=== PATIENT | male | born 1965 | race Asian ===

== ENCOUNTER 2016-12-30 22:58 | Inpatient (IN) | payer SELFPAY ==
--- NOTE | 2016-12-30 23:52 | ED Physician Chart ---
ED Chief Complaint/HPI - Patient Information Date Seen:: 12/30/16 Time Seen:: 23:10 Chief Complaint:: Right Inguinal Pain History of Present Illness:: onset x one day of right inguinal pain and protrusion of RIH; no trauma, H/As, neck pain, C/P, SOB, Abd/flank pain, A/N/V/D/C, fever, chills, or urinary s/s Allergies:: Allergies Allergy/AdvReac Type Severity Reaction Status Date / Time No Known Allergies Allergy Verified 12/30/16 23:41 Vitals:: Vital Signs - 8 hr 12/30/16 23:10 Temp 98.4 F HR 86 RR 20 BP 144/94 O2 Sat % 99 Historian:: Patient Review:: Nurse's Note Reviewed ED Review of Systems - Review of Systems General/Constitutional: No fever, No chills, No weight loss, No weakness, No diaphoresis, No edema, No loss of appetite Skin: No skin lesions, No rash, No bruising Head: No headache, No light-headedness Eyes: No loss of vision, No pain, No diplopia ENT: No earache, No nasal drainage, No sore throat, No tinnitus Neck: No neck pain, No swelling, No thyromegaly, No stiffness, No mass noted Cardio Vascular: No chest pain, No palpitations, No PND, No orthopnea, No edema Pulmonary: No SOB, No cough, No sputum, No wheezing GI: No nausea, No vomiting, No diarrhea, No pain, No melena, No hematochezia, No constipation, No hematemesis G/U: No dysuria, No frequency, No hematuria, No nacturia Musculoskeletal: Bone or joint pain, Back pain, Muscle pain Endocrine: No polyuria, No polydipsia Psychiatric: No prior psych history, No depression, No anxiety, No suicidal ideation Hematopoietic: No bruising, No lymphadenopathy Allergic/Immuno: No urticaria, No angioedema Neurological: No syncope, No focal symptoms, No weakness, No paresthesia, No headache, No seizure, No dizziness, No confusion, No vertigo ED Past Medical History - Past Medical History Obtainable: Yes Past Medical History: Other (DDD; Hernia) Family History: HTN Social History: Non Smoker, No Alcohol, No Drug Use, Single Surgical History: Hernia Psychiatricy History: None Medication: Reviewed ED Physical Exam - Physical Examination General/Constitutional: Awake, Well-developed, well-nourished, Alert, No distress, GCS 15, Non-toxic appearing, Ambulatory Head: Atraumatic Eyes: Lids, conjuctiva normal, PERRL, EOMI Skin: Nl inspection, No rash, No skin lesions, No ecchymosis, Well hydrated, No lymphadenopathy ENMT: External ears, nose nl, Nasal exam nl, Lips, teeth, gums nl Neck: Nontender, Full ROM w/o pain, No JVD, No nuchal rigidity, No bruit, No mass, No stridor Respiratory: Nl effort/Exclusion, Clear to Auscultation, No Wheeze/Rhonchi/Rales Cardio Vascular: RRR, No murmur, gallop, rubs, NL S1 S2 GI: No tenderness/rebounding/guarding, No organomegaly, No hernia, Normal BS's, Nondistended, No mass/bruits, No McBurney tenderness : No CVA tenderness Other comments:: + Right Inguinal Hernia Extremities: No tenderness or effusion, Full ROM, normal strength in all extremities, No edema, Normal digits & nails Neuro/Psych: Alert/oriented, DTR's symmetric, Normal sensory exam, Normal motor strength, Judgement/insight normal, Mood normal, Normal gait, No focal deficits Misc: Normal back, No paraspinal tenderness ED Labs/Radiology/EKG Results - Lab Results Comments:: H/H: Low; otherwise unremarkable - Radiology Results Comments:: Non-obstructing RIH - EKG Interpretations EKG Time:: 23:56 Rate & Rhythm: 84; NSR Comments:: T-Wave Inversions; nonspecific st-t changes ED Septic Shock - . Is Septic Shock (SBP<90, OR Lactate>4 mmol\L) present?: No - <6hrs of presentation: Vital Signs: Vital Signs - 8 hr 12/30/ 23:10 Temp 98.4 F HR 86 RR 20 BP 144/94 O2 Sat % 99 ED Reassessment (Disposition) - Reassessment Reassessment Condition:: Improved - Diagnosis Diagnosis:: Dx: Right Inguinal Hernia; Intractable Pain; Anemia; Abdominal Pain; Back Pain - Aftercare/Follow up Instructions Aftercare/Follow-Up Instructions:: Counseled pt regarding lab results/diagnosis & need follow up, Counseled pt & family regarding lab results/diagnosis & need follow up - Patient Disposition Discharge/Transfer:: Acute Care w/in this hosp Accepting Physician:: Dr. Rouse Time Called:: 229 Time Responded:: 02:30 Admitted to:: Med/Surg Spoke to:: Dr. Rouse Admitting Medical Physician:: Dr. Rouse Condition at Disposition:: Stable, Improved ED Discharge Plan - Patient Disposition Admit/Discharge/Transfer: Acute Care w/in this hosp
[2016-12-30] MEDS ORDERED: Morphine Sulfate 2 mg/mL 1mL Syr IVP ONE (23:53)
[2016-12-30] MEDS ORDERED: Sodium Chloride 0.9% 1,000 ML IV ONE (23:53)
[2016-12-31 00:21] LABS: % BASOPHILS 0.8 % (0.0-2.0); % EOSINOPHILS 2.7 % (0.0-5.0); % LYMPHOCYTES 31.4 % (20.0-50.0); % MONOCYTES 8.8 % (2.0-10.0); % NEUTROPHILS 56.3 % (40.0-80.0); HEMATOCRIT 34.9 % (41.0-60); HEMOGLOBIN 11.6 gm/dL (12-16); MEAN CELL VOLUME 87.5 fl (80-99); MEAN CORPUSCULAR HEMOGLOBIN 29.2 pg (26.0-30.0); MEAN CORPUSCULAR HGB CONC 33.3 pg (28.0-36.0); MEAN PLATELET VOLUME 8.5 fl; NEUTROPHILE ABSOLUTE 4.4 Th/cmm (1.8-8.0); PLATELET COUNT 255 Th/cmm (150-400); RED BLOOD COUNT 3.99 Mil/cmm (4.30-5.70); RED CELL DISTRIBUTION WIDTH 13.5 % (11.5-20.0); WHITE BLOOD COUNT 7.8 Th/cmm (4.8-10.8)
[2016-12-31] MEDS ORDERED: Morphine Sulfate 2 mg/mL 1mL Syr ONE (00:39)
[2016-12-31 00:48] LABS: INR 0.9 (0.5-1.4); PROTHROMBIN TIME (TEST) 9.3 SECONDS (9.5-11.5)
[2016-12-31 00:52] LABS: ALB/GLOB RATIO 1.4 (1.0-1.8); ALKALINE PHOSPHATASE 69 U/L (34-104); AMYLASE SERUM 31 U/L (29-103); ANION GAP 7.3 (7.0-16.0); BILIRUBIN,TOTAL 0.2 mg/dL (0.3-1.0); BUN - UREA NITROGEN 20 mg/dL (7-25); CALCIUM SERUM 9.2 mg/dL (8.6-10.3); CARBON DIOXIDE 28.4 mEq/L (21.0-31.0); CHLORIDE 105 mEq/L (98-107); CHOLESTEROL 135 mg/dL (<200); CREATININE - SERUM 0.8 mg/dL (0.7-1.3); GLUCOSE 109 mg/dL (70-105); POTASSIUM SERUM 3.7 mEq/L (3.5-5.1); SGOT 16 U/L (13-39); SGPT/ALT 17 U/L (7-52); SODIUM SERUM 137 mEq/L (136-145); TRIGLYCERIDES 61 mg/dL (<150)
[2016-12-31 01:11] LABS: CREATINE KINASE MB 15.5 ng/mL (0.6-6.3)
[2016-12-31] MEDS ORDERED: Ipratropium Neb 0.5 mg/2.5 mL UD IH PRN (07:58)
[2016-12-31] MEDS ORDERED: Albuterol Nebulizer 2.5mg/3mL HHN PRN (07:58)
[2016-12-31 07:59] VITALS: BP 153/102
--- NOTE | 2016-12-31 08:49 | General Progress Note ---
Subjective - Review of Systems Service Date: 12/31/16 Events since last encounter: consult dictated labs normal had repair of this hernia 1 year ago right scrotal hernia, tender, incarcerated, not strangulated will have case management get involved Objective - Results Result Diagrams: 12/31/16 00:04 12/31/16 00:04 Recent Labs: Laboratory Last Values WBC 7.8 Th/cmm (4.8-10.8) 12/31/16 00:04 RBC 3.99 Mil/cmm (4.30-5.70) L 12/31/16 00:04 Hgb 11.6 gm/dL (12-16) L 12/31/16 00:04 Hct 34.9 % (41.0-60) L 12/31/16 00:04 MCV 87.5 fl (80-99) 12/31/16 00:04 MCH 29.2 pg (26.0-30.0) 12/31/16 00:04 MCHC Differential 33.3 pg (28.0-36.0) 12/31/16 00:04 RDW 13.5 % (11.5-20.0) 12/31/16 00:04 Plt Count 255 Th/cmm (150-400) 12/31/16 00:04 MPV 8.5 fl 12/31/16 00:04 Neutrophils % 56.3 % (40.0-80.0) 12/31/16 00:04 Lymphocytes % 31.4 % (20.0-50.0) 12/31/16 00:04 Monocytes % 8.8 % (2.0-10.0) 12/31/16 00:04 Eosinophils % 2.7 % (0.0-5.0) 12/31/16 00:04 Basophils % 0.8 % (0.0-2.0) 12/31/16 00:04 PT 9.3 SECONDS (9.5-11.5) L 12/31/16 00:04 INR 0.90 (0.5-1.4) 12/31/16 00:04 Sodium 137 mEq/L (136-145) 12/31/16 00:04 Potassium 3.7 mEq/L (3.5-5.1) 12/31/16 00:04 Chloride 105 mEq/L (98-107) 12/31/16 00:04 Carbon Dioxide 28.4 mEq/L (21.0-31.0) 12/31/16 00:04 Anion Gap 7.3 (7.0-16.0) 12/31/16 00:04 BUN 20 mg/dL (7-25) 12/31/16 00:04 Creatinine 0.8 mg/dL (0.7-1.3) 12/31/16 00:04 Est GFR ( Amer) > 60.0 ml/min (>90) 12/31/16 00:04 Est GFR (Non-Af Amer) > 60.0 ml/min 12/31/16 00:04 BUN/Creatinine Ratio 25.0 12/31/16 00:04 Glucose 109 mg/dL (70-105) H 12/31/16 00:04 Calcium 9.2 mg/dL (8.6-10.3) 12/31/16 00:04 Total Bilirubin 0.2 mg/dL (0.3-1.0) L 12/31/16 00:04 AST 16 U/L (13-39) 12/31/16 00:04 ALT 17 U/L (7-52) 12/31/16 00:04 Alkaline Phosphatase 69 U/L (34-104) 12/31/16 00:04 Creatine Kinase 255 U/L (30-223) H 12/31/16 00:04 CK-MB (CK-2) 15.5 ng/mL (0.6-6.3) H 12/31/16 00:04 Troponin I < 0.01 ng/mL (0.01-0.05) L 12/31/16 00:04 B-Natriuretic Peptide 27.2 pg/mL (5.0-100.0) 12/31/16 00:04 Total Protein 6.5 gm/dL (6.0-8.3) 12/31/16 00:04 Albumin 3.8 gm/dL (4.2-5.5) L 12/31/16 00:04 Globulin 2.7 gm/dL 12/31/16 00:04 Albumin/Globulin Ratio 1.4 (1.0-1.8) 12/31/16 00:04 Triglycerides 61 mg/dL (<150) 12/31/16 00:04 Cholesterol 135 mg/dL (<200) 12/31/16 00:04 LDL Cholesterol Direct 103 mg/dL (75-193) 12/31/16 00:04 HDL Cholesterol 33 mg/dL (23-92) 12/31/16 00:04 Amylase 31 U/L (29-103) 12/31/16 00:04 - Physical Exam Vitals and I&O: Vital Signs Temp 98.5 F 12/31/16 08:00 Pulse 65 12/31/16 08:00 Resp 18 12/31/16 08:00 BP 161/83 12/31/16 08:00 Pulse Ox 96 12/31/16 08:00 Intake & Output 12/30/16 12/31/16 12/31/16 18:59 06:59 18:59 Weight (lbs) 118.388 kg Active Medications: Current Medications Acetaminophen (Tylenol) 650 mg PO Q4H PRN PRN Reason: Pain Or Fever above 101 Stop: 03/01/17 07:57 Acetaminophen/Hydrocodone Bitart ([place] 5mg/325mg) 1 tab PO Q4H PRN PRN Reason: Pain (Severe) Stop: 03/01/17 07:57 Albuterol Sulfate (Albuterol 2.5mg/3ml Neb Ud) 2.5 mg HHN Q2HRT PRN PRN Reason: Shortness of Breath or Wheeze Stop: 03/01/17 07:57 Heparin Sodium (Porcine) (Heparin) 5,000 units SUBQ Q12HR [facility] Stop: 03/01/17 08:59 Sodium Chloride (Nacl 0.9%) 1,000 mls @ 100 mls/hr IV .Q10H ONE Stop: 12/31/16 09:52 Last Admin: 12/31/16 00:48 Dose: 100 mls/hr Dextrose/Sodium Chloride (D5-0.9%Ns) 1,000 mls @ 80 mls/hr IV .[id number] [facility] Stop: 03/01/17 07:59 Ipratropium [place] (Atrovent Neb 0.5mg/2.5ml) 0.5 mg IH Q2HRT PRN PRN Reason: Shortness of Breath or Wheeze Stop: 03/01/17 07:57 Morphine Sulfate (Morphine) 2 mg IVP Q4H PRN PRN Reason: Pain (Moderate) Stop: 03/01/17 03:44 Ondansetron HCl (Zofran) 4 mg IV Q8H PRN PRN Reason: Nausea / Vomiting Stop: 03/01/17 07:57 Zolpidem Tartrate (Ambien) 10 mg PO HS PRN PRN Reason: Insomnia Stop: 03/01/17 07:57
[2016-12-31] MEDS: D5-0.9%NS 1,000 ML IV SCH (09:39)
--- NOTE | 2016-12-31 09:58 | Consultation ---
DATE OF CONSULTATION: 12/31/2016 REFERRING PHYSICIAN: Dr. Rouse. REASON FOR CONSULTATION: Large right inguinal hernia (scrotal). Thank you for referring this patient to me. HISTORY OF PRESENT ILLNESS: This is a 51-year-old male who comes in through ER because of 1-day history of severe pain in the right inguinal area with a mass extending into the scrotum. The patient does some heavy lifting at his work, but is unable to furnish any good information now as he has been medicated with morphine and goes to sleep during interview. The laboratory studies; however, are normal, A year ago, he underwent repair of this hernia, but apparently it has come back. PHYSICAL EXAMINATION: Shows a large right inguinal hernia extending into the scrotum, which is slightly tender. There is also an umbilical hernia present. PLAN: We will have case management get involved in the care of this patient as it does not appear it is obstructed, although it is incarcerated. Thank you for this consultation. We will follow with you. JOB# [id number]
--- NOTE | 2016-12-31 10:46 | Diagnostic Imaging Report ---
CHEST X-RAY: AP view INDICATION: pain COMPARISON: None FINDINGS: Increased interstitial lung markings are noted. No focal consolidation or effusions. Heart size is normal. Degenerative changes of the spine are noted. IMPRESSION: Increased initial lung markings, nonspecific. No focal consolidation identified.
--- NOTE | 2016-12-31 10:52 | Diagnostic Imaging Report ---
CT abdomen and pelvis without intravenous contrast Indication: Abdominal pain Comparison: None, Technique: Axial images were obtained from the lung bases to the bilateral proximal femurs without IV contrast. Coronal reconstructions were made. total DLP: 908, CTDI13.6 FINDINGS: Hypoventilatory and atelectatic changes of the lung bases are noted. Assessment of the solid organs is limited due to lack of IV contrast. No evidence of focal hepatic or splenic lesions. Splenic artery calcifications are noted. No focal pancreatic or renal lesions. No loss of hydronephrosis or focal renal lesions. There is a large sided inguinal hernia containing primarily large bowel loops with mild bowel edema seen in this region. The appendix is not well-visualized and may be located within the right inguinal hernia. There is also moderate to large left inguinal hernia with adjacent bowel loops along the opening of the inguinal hernia. Copious stool is seen throughout the colon. Gaseous and fluid-filled loops of bowel are noted. Diffuse atherosclerotic vascular disease is noted. No evidence of free air or free fluid. The degenerative changes of the spine are seen advanced at L5/S1. 1.5 cm sclerotic density probably a bone seen within the left pubic bone. IMPRESSION: Large right inguinal hernia containing multiple loops of primarily large bowel with minimal bowel wall edema seen in this region. Clinical correlation and follow-up and possible surgical consultation is recommended Additional moderate to large fat-containing left inguinal hernia with an adjacent loop of bowel along the opening of the hernia. No evidence of bowel herniation into the hernia. Copious stool with distal fecal impaction. Atherosclerotic vascular disease. Final results were administered to the referring team on 12/31/2016.
--- NOTE | 2016-12-31 13:35 | Internal Medicine Prog Note ---
Internal Medicine Subjective - Subjective Service Date: 12/31/16 ([id number] hn dictated ) Internal Medicine Objective - Results Result Diagrams: 12/31/16 00:04 12/31/16 00:04 Recent Labs: Laboratory Last Values WBC 7.8 Th/cmm (4.8-10.8) 12/31/16 00:04 RBC 3.99 Mil/cmm (4.30-5.70) L 12/31/16 00:04 Hgb 11.6 gm/dL (12-16) L 12/31/16 00:04 Hct 34.9 % (41.0-60) L 12/31/16 00:04 MCV 87.5 fl (80-99) 12/31/16 00:04 MCH 29.2 pg (26.0-30.0) 12/31/16 00:04 MCHC Differential 33.3 pg (28.0-36.0) 12/31/16 00:04 RDW 13.5 % (11.5-20.0) 12/31/16 00:04 Plt Count 255 Th/cmm (150-400) 12/31/16 00:04 MPV 8.5 fl 12/31/16 00:04 Neutrophils % 56.3 % (40.0-80.0) 12/31/16 00:04 Lymphocytes % 31.4 % (20.0-50.0) 12/31/16 00:04 Monocytes % 8.8 % (2.0-10.0) 12/31/16 00:04 Eosinophils % 2.7 % (0.0-5.0) 12/31/16 00:04 Basophils % 0.8 % (0.0-2.0) 12/31/16 00:04 PT 9.3 SECONDS (9.5-11.5) L 12/31/16 00:04 INR 0.90 (0.5-1.4) 12/31/16 00:04 Sodium 137 mEq/L (136-145) 12/31/16 00:04 Potassium 3.7 mEq/L (3.5-5.1) 12/31/16 00:04 Chloride 105 mEq/L (98-107) 12/31/16 00:04 Carbon Dioxide 28.4 mEq/L (21.0-31.0) 12/31/16 00:04 Anion Gap 7.3 (7.0-16.0) 12/31/16 00:04 BUN 20 mg/dL (7-25) 12/31/16 00:04 Creatinine 0.8 mg/dL (0.7-1.3) 12/31/16 00:04 Est GFR ( Amer) > 60.0 ml/min (>90) 12/31/16 00:04 Est GFR (Non-Af Amer) > 60.0 ml/min 12/31/16 00:04 BUN/Creatinine Ratio 25.0 12/31/16 00:04 Glucose 109 mg/dL (70-105) H 12/31/16 00:04 Calcium 9.2 mg/dL (8.6-10.3) 12/31/16 00:04 Total Bilirubin 0.2 mg/dL (0.3-1.0) L 12/31/16 00:04 AST 16 U/L (13-39) 12/31/16 00:04 ALT 17 U/L (7-52) 12/31/16 00:04 Alkaline Phosphatase 69 U/L (34-104) 12/31/16 00:04 Creatine Kinase 255 U/L (30-223) H 12/31/16 00:04 CK-MB (CK-2) 15.5 ng/mL (0.6-6.3) H 12/31/16 00:04 Troponin I < 0.01 ng/mL (0.01-0.05) L 12/31/16 00:04 B-Natriuretic Peptide 27.2 pg/mL (5.0-100.0) 12/31/16 00:04 Total Protein 6.5 gm/dL (6.0-8.3) 12/31/16 00:04 Albumin 3.8 gm/dL (4.2-5.5) L 12/31/16 00:04 Globulin 2.7 gm/dL 12/31/16 00:04 Albumin/Globulin Ratio 1.4 (1.0-1.8) 12/31/16 00:04 Triglycerides 61 mg/dL (<150) 12/31/16 00:04 Cholesterol 135 mg/dL (<200) 12/31/16 00:04 LDL Cholesterol Direct 103 mg/dL (75-193) 12/31/16 00:04 HDL Cholesterol 33 mg/dL (23-92) 12/31/16 00:04 Amylase 31 U/L (29-103) 12/31/16 00:04 - Physical Exam Vitals and I&O: Vital Signs Temp 97.5 F 12/31/16 12:00 Pulse 72 12/31/16 12:00 Resp 19 12/31/16 12:00 BP 156/100 12/31/16 12:00 Pulse Ox 98 12/31/16 12:00 Intake & Output 12/30/16 12/31/16 12/31/16 18:59 06:59 18:59 Weight (lbs) 261 lb Active Medications: Current Medications Acetaminophen (Tylenol) 650 mg PO Q4H PRN PRN Reason: Pain Or Fever above 101 Stop: 03/01/17 07:57 Acetaminophen/Hydrocodone Bitart ([place] 5mg/325mg) 1 tab PO Q4H PRN PRN Reason: Pain (Severe) Stop: 03/01/17 07:57 Albuterol Sulfate (Albuterol 2.5mg/3ml Neb Ud) 2.5 mg HHN Q2HRT PRN PRN Reason: Shortness of Breath or Wheeze Stop: 03/01/17 07:57 Heparin Sodium (Porcine) (Heparin) 5,000 units SUBQ Q12HR [facility] Stop: 03/01/17 08:59 Last Admin: 12/31/16 09:39 Dose: Not Given Dextrose/Sodium Chloride (D5-0.9%Ns) 1,000 mls @ 80 mls/hr IV .[id number] [facility] Stop: 03/01/17 07:59 Last Admin: 12/31/16 09:39 Dose: 80 mls/hr Ipratropium [place] (Atrovent Neb 0.5mg/2.5ml) 0.5 mg IH Q2HRT PRN PRN Reason: Shortness of Breath or Wheeze Stop: 03/01/17 07:57 Morphine Sulfate (Morphine) 2 mg IVP Q4H PRN PRN Reason: Pain (Moderate) Stop: 03/01/17 03:44 Ondansetron HCl (Zofran) 4 mg IV Q8H PRN PRN Reason: Nausea / Vomiting Stop: 03/01/17 07:57 Zolpidem Tartrate (Ambien) 10 mg PO HS PRN PRN Reason: Insomnia Stop: 03/01/17 07:57 Internal Medicine Assmt/Plan - Assessment Assessment: Inguinal hernia Right recurrent Groin pain
--- NOTE | 2016-12-31 15:27 | History & Physical ---
ADMIT DATE: 12/31/2016 CHIEF COMPLAINT: Right inguinal pain. HISTORY OF PRESENT ILLNESS: This is a 51-year-old male who has a 1-day history of right inguinal pain with protrusion. The patient denies any fevers, any chills. The patient states that he has been having this pain for a while. PAST MEDICAL HISTORY: Hernia, degenerative joint disease, and hypertension. PAST SURGICAL HISTORY: Hernia repair. FAMILY HISTORY: Noncontributory. MEDICATIONS: The patient denies any home medications. REVIEW OF SYSTEMS: GENERAL: Denies any fevers, any chills. CARDIOVASCULAR: Denies chest pain. RESPIRATORY: Denies shortness of breath. GASTROINTESTINAL: Denies nausea, vomiting, or abdominal pain. GENITOURINARY: Denies dysuria. All other systems are reviewed by me and are negative. PHYSICAL EXAMINATION: GENERAL: This is a middle aged male, appears unkempt, no apparent distress. VITAL SIGNS: Temperature 97.5, heart rate 72, blood pressure is 156/100, respirations 19, and O2 98%. HEENT: Head; normocephalic, atraumatic. NECK: Supple. No mass. LUNGS: Clear bilaterally. HEART: Regular rate and rhythm. ABDOMEN: Soft and nontender. LABORATORY DATA: WBC 7.8, H and H 11.6 and 34.9, platelets 255. Sodium 137, potassium 3.7, chloride 105, BUN 20, and creatinine 0.8. Troponin 0.01. Albumin 3.8. The patient had a CT of abdomen and pelvis done and the impression is large right inguinal hernia containing multiple loops of primary large bowel with minimal bowel wall edema seen in the region. Clinical correlation and ____ possible surgical consultation is recommended, additional moderate to large fat containing left inguinal hernia with an adjacent loop of bowel along the opening of the hernia, no evidence of bowel herniation into the hernia, copious stool with distal fecal impaction, atherosclerotic vascular disease. Chest x-ray was also obtained and the impression is increased interstitial lung markings, nonspecific, no focal consolidation. ASSESSMENT: Inguinal hernia, right recurrent ongoing pain, hypertension, mild protein-calorie malnutrition. PLAN: The patient to be admitted to med/surg unit. The patient will have surgical consult and IV fluids for hydration. The patient will be kept n.p.o. for now. We will add lisinopril and Norvasc to control the patient's blood pressure. Pain management as well. We will continue to follow this patient. [facility]# [id number]
[2017-01-01] MEDS: Morphine Sulfate 2 mg/mL 1mL Syr IVP PRN ×3 (08:57→23:22)
[2017-01-01] MEDS: D5-0.9%NS 1,000 ML IV SCH (09:17)
[2017-01-01 10:06] LABS: % BASOPHILS 0.7 % (0.0-2.0); % EOSINOPHILS 1.8 % (0.0-5.0); % LYMPHOCYTES 23.8 % (20.0-50.0); % NEUTROPHILS 66.7 % (40.0-80.0); HEMOGLOBIN 13.5 gm/dL (12-16); MEAN CELL VOLUME 86.8 fl (80-99); MEAN CORPUSCULAR HEMOGLOBIN 29.5 pg (26.0-30.0); MEAN PLATELET VOLUME 8.2 fl; NEUTROPHILE ABSOLUTE 4.5 Th/cmm (1.8-8.0); PLATELET COUNT 268 Th/cmm (150-400); RED BLOOD COUNT 4.58 Mil/cmm (4.30-5.70); RED CELL DISTRIBUTION WIDTH 13.2 % (11.5-20.0); WHITE BLOOD COUNT 6.7 Th/cmm (4.8-10.8)
[2017-01-01 10:08] LABS: HEMATOCRIT 39.8 % (41.0-60)
[2017-01-01 10:22] LABS: ALB/GLOB RATIO 1.3 (1.0-1.8); ALKALINE PHOSPHATASE 79 U/L (34-104); ANION GAP 6.3 (7.0-16.0); BILIRUBIN,TOTAL 0.4 mg/dL (0.3-1.0); BUN - UREA NITROGEN 10 mg/dL (7-25); BUN/CREATININE RATIO 14.3; CALCIUM SERUM 9.2 mg/dL (8.6-10.3); CARBON DIOXIDE 28.5 mEq/L (21.0-31.0); CHLORIDE 103 mEq/L (98-107); CREATININE - SERUM 0.7 mg/dL (0.7-1.3); GLUCOSE 101 mg/dL (70-105); POTASSIUM SERUM 3.8 mEq/L (3.5-5.1); SGOT 17 U/L (13-39); SGPT/ALT 17 U/L (7-52); SODIUM SERUM 134 mEq/L (136-145)
[2017-01-01] MEDS ORDERED: fentaNYL Citrate 100 mcg/2mL Vial ONE (10:55)
[2017-01-01] MEDS ORDERED: Midazolam 1mg/ml 2 ml vial IV ONE (10:55)
[2017-01-01] MEDS ORDERED: Meperidine 25 mg/mL 1mL Syr IVP PRN (11:09)
[2017-01-01] MEDS ORDERED: Lactated Ringer 1,000 ML IV SCH (11:15)
[2017-01-01 11:31] LABS: AMPHETAMINE URINE POSITIVE (NEGATIVE); BARBITURATES URINE NEGATIVE (NEGATIVE); METHADONE URINE NEGATIVE (NEGATIVE)
--- NOTE | 2017-01-01 11:33 | General Progress Note ---
Subjective - Review of Systems Service Date: 01/01/17 Events since last encounter: intermediary (Natanael) came yesterday to qualify him for insurance but refused to wake up to cooperate. exam now shows large, tender right inguinal hernia (recurrent) and another hernia on the left side tryin to determine consent for surgery and patient Objective - Results Result Diagrams: 01/01/17 10:00 01/01/17 10:00 Recent Labs: Laboratory Last Values WBC 6.7 Th/cmm (4.8-10.8) 01/01/17 10:00 RBC 4.58 Mil/cmm (4.30-5.70) 01/01/17 10:00 Hgb 13.5 gm/dL (12-16) 01/01/17 10:00 Hct 39.8 % (41.0-60) L D 01/01/17 10:00 MCV 86.8 fl (80-99) 01/01/17 10:00 MCH 29.5 pg (26.0-30.0) 01/01/17 10:00 MCHC Differential 34.0 pg (28.0-36.0) 01/01/17 10:00 RDW 13.2 % (11.5-20.0) 01/01/17 10:00 Plt Count 268 Th/cmm (150-400) 01/01/17 10:00 MPV 8.2 fl 01/01/17 10:00 Neutrophils % 66.7 % (40.0-80.0) 01/01/17 10:00 Lymphocytes % 23.8 % (20.0-50.0) 01/01/17 10:00 Monocytes % 7.0 % (2.0-10.0) 01/01/17 10:00 Eosinophils % 1.8 % (0.0-5.0) 01/01/17 10:00 Basophils % 0.7 % (0.0-2.0) 01/01/17 10:00 PT 9.3 SECONDS (9.5-11.5) L 12/31/16 00:04 INR 0.90 (0.5-1.4) 12/31/16 00:04 Sodium 134 mEq/L (136-145) L 01/01/17 10:00 Potassium 3.8 mEq/L (3.5-5.1) 01/01/17 10:00 Chloride 103 mEq/L (98-107) 01/01/17 10:00 Carbon Dioxide 28.5 mEq/L (21.0-31.0) 01/01/17 10:00 Anion Gap 6.3 (7.0-16.0) L 01/01/17 10:00 BUN 10 mg/dL (7-25) 01/01/17 10:00 Creatinine 0.7 mg/dL (0.7-1.3) 01/01/17 10:00 Est GFR ( Amer) > 60.0 ml/min (>90) 01/01/17 10:00 Est GFR (Non-Af Amer) > 60.0 ml/min 01/01/17 10:00 BUN/Creatinine Ratio 14.3 01/01/17 10:00 Glucose 101 mg/dL (70-105) 01/01/17 10:00 Calcium 9.2 mg/dL (8.6-10.3) 01/01/17 10:00 Total Bilirubin 0.4 mg/dL (0.3-1.0) 01/01/17 10:00 AST 17 U/L (13-39) 01/01/17 10:00 ALT 17 U/L (7-52) 01/01/17 10:00 Alkaline Phosphatase 79 U/L (34-104) 01/01/17 10:00 Creatine Kinase 255 U/L (30-223) H 12/31/16 00:04 CK-MB (CK-2) 15.5 ng/mL (0.6-6.3) H 12/31/16 00:04 Troponin I < 0.01 ng/mL (0.01-0.05) L 12/31/16 00:04 B-Natriuretic Peptide 27.2 pg/mL (5.0-100.0) 12/31/16 00:04 Total Protein 7.0 gm/dL (6.0-8.3) 01/01/17 10:00 Albumin 4.0 gm/dL (4.2-5.5) L 01/01/17 10:00 Globulin 3.0 gm/dL 01/01/17 10:00 Albumin/Globulin Ratio 1.3 (1.0-1.8) 01/01/17 10:00 Triglycerides 61 mg/dL (<150) 12/31/16 00:04 Cholesterol 135 mg/dL (<200) 12/31/16 00:04 LDL Cholesterol Direct 103 mg/dL (75-193) 12/31/16 00:04 HDL Cholesterol 33 mg/dL (23-92) 12/31/16 00:04 Amylase 31 U/L (29-103) 12/31/16 00:04 - Physical Exam Vitals and I&O: Vital Signs Temp 98.3 F 01/01/17 08:00 Pulse 85 01/01/17 08:00 Resp 18 01/01/17 08:00 BP 159/89 01/01/17 08:00 Pulse Ox 99 01/01/17 08:00 Intake & Output 12/31/16 01/01/17 01/01/17 18:59 06:59 18:59 Intake Total 1500 Balance 1500 Weight (lbs) 118.388 kg 118.161 kg Intake: Intake, IV Amount 1000 D5-0.9%Ns 1,000 ml @ 80 1000 mls/hr IV .[id number] [facility] Rx #:[id number] Oral 500 Other: # Voids 3 # Bowel Movements 0 Active Medications: Current Medications Acetaminophen (Tylenol) 650 mg PO Q4H PRN PRN Reason: Pain Or Fever above 101 Stop: 03/01/17 07:57 Acetaminophen/Hydrocodone Bitart ([place] 5mg/325mg) 1 tab PO Q4H PRN PRN Reason: Pain (Severe) Stop: 03/01/17 07:57 Albuterol Sulfate (Albuterol 2.5mg/3ml Neb Ud) 2.5 mg HHN Q2HRT PRN PRN Reason: Shortness of Breath or Wheeze Stop: 03/01/17 07:57 Dextrose/Sodium Chloride (D5-0.9%Ns) 1,000 mls @ 80 mls/hr IV .[id number] [facility] Stop: 03/01/17 07:59 Last Admin: 01/01/17 09:17 Dose: 80 mls/hr Lactated Ringer's (Lactated Ringer) 1,000 mls @ 0 mls/hr IV .Q0M [facility] PRN Reason: TKO Stop: 01/02/17 11:14 Ipratropium [place] (Atrovent Neb 0.5mg/2.5ml) 0.5 mg IH Q2HRT PRN PRN Reason: Shortness of Breath or Wheeze Stop: 03/01/17 07:57 Meperidine HCl (Demerol) 12.5 mg IVP UD PRN PRN Reason: POST-OP PAIN Stop: 01/02/17 11:08 Morphine Sulfate (Morphine) 2 mg IVP Q4H PRN PRN Reason: Pain (Moderate) Stop: 03/01/17 03:44 Last Admin: 01/01/17 08:57 Dose: 2 mg Ondansetron HCl (Zofran) 4 mg IV Q8H PRN PRN Reason: Nausea / Vomiting Stop: 03/01/17 07:57 Ondansetron HCl (Zofran) 4 mg IV PRN PRN PRN Reason: Nausea / Vomiting Stop: 01/02/17 11:08 Zolpidem Tartrate (Ambien) 10 mg PO HS PRN PRN Reason: Insomnia Stop: 03/01/17 07:57
[2017-01-01] MEDS ORDERED: Bupivacaine 0.5% W/Ep 10 mL Vial INJ ONE (11:35)
--- NOTE | 2017-01-01 13:36 | General Progress Note ---
Subjective - Review of Systems Service Date: 01/01/17 Events since last encounter: on awakening from anesthesia, patient got out of bed, pulled out IVs and refused to get back in bed trashing around and cussing guards called Objective - Results Result Diagrams: 01/01/17 10:00 01/01/17 10:00 Recent Labs: Laboratory Last Values WBC 6.7 Th/cmm (4.8-10.8) 01/01/17 10:00 RBC 4.58 Mil/cmm (4.30-5.70) 01/01/17 10:00 Hgb 13.5 gm/dL (12-16) 01/01/17 10:00 Hct 39.8 % (41.0-60) L D 01/01/17 10:00 MCV 86.8 fl (80-99) 01/01/17 10:00 MCH 29.5 pg (26.0-30.0) 01/01/17 10:00 MCHC Differential 34.0 pg (28.0-36.0) 01/01/17 10:00 RDW 13.2 % (11.5-20.0) 01/01/17 10:00 Plt Count 268 Th/cmm (150-400) 01/01/17 10:00 MPV 8.2 fl 01/01/17 10:00 Neutrophils % 66.7 % (40.0-80.0) 01/01/17 10:00 Lymphocytes % 23.8 % (20.0-50.0) 01/01/17 10:00 Monocytes % 7.0 % (2.0-10.0) 01/01/17 10:00 Eosinophils % 1.8 % (0.0-5.0) 01/01/17 10:00 Basophils % 0.7 % (0.0-2.0) 01/01/17 10:00 PT 9.3 SECONDS (9.5-11.5) L 12/31/16 00:04 INR 0.90 (0.5-1.4) 12/31/16 00:04 Sodium 134 mEq/L (136-145) L 01/01/17 10:00 Potassium 3.8 mEq/L (3.5-5.1) 01/01/17 10:00 Chloride 103 mEq/L (98-107) 01/01/17 10:00 Carbon Dioxide 28.5 mEq/L (21.0-31.0) 01/01/17 10:00 Anion Gap 6.3 (7.0-16.0) L 01/01/17 10:00 BUN 10 mg/dL (7-25) 01/01/17 10:00 Creatinine 0.7 mg/dL (0.7-1.3) 01/01/17 10:00 Est GFR ( Amer) > 60.0 ml/min (>90) 01/01/17 10:00 Est GFR (Non-Af Amer) > 60.0 ml/min 01/01/17 10:00 BUN/Creatinine Ratio 14.3 01/01/17 10:00 Glucose 101 mg/dL (70-105) 01/01/17 10:00 Calcium 9.2 mg/dL (8.6-10.3) 01/01/17 10:00 Total Bilirubin 0.4 mg/dL (0.3-1.0) 01/01/17 10:00 AST 17 U/L (13-39) 01/01/17 10:00 ALT 17 U/L (7-52) 01/01/17 10:00 Alkaline Phosphatase 79 U/L (34-104) 01/01/17 10:00 Creatine Kinase 255 U/L (30-223) H 12/31/16 00:04 CK-MB (CK-2) 15.5 ng/mL (0.6-6.3) H 12/31/16 00:04 Troponin I < 0.01 ng/mL (0.01-0.05) L 12/31/16 00:04 B-Natriuretic Peptide 27.2 pg/mL (5.0-100.0) 12/31/16 00:04 Total Protein 7.0 gm/dL (6.0-8.3) 01/01/17 10:00 Albumin 4.0 gm/dL (4.2-5.5) L 01/01/17 10:00 Globulin 3.0 gm/dL 01/01/17 10:00 Albumin/Globulin Ratio 1.3 (1.0-1.8) 01/01/17 10:00 Triglycerides 61 mg/dL (<150) 12/31/16 00:04 Cholesterol 135 mg/dL (<200) 12/31/16 00:04 LDL Cholesterol Direct 103 mg/dL (75-193) 12/31/16 00:04 HDL Cholesterol 33 mg/dL (23-92) 12/31/16 00:04 Amylase 31 U/L (29-103) 12/31/16 00:04 Urine Opiates Screen POSITIVE (NEGATIVE) H 01/01/17 11:15 Urine Methadone Screen NEGATIVE (NEGATIVE) 01/01/17 11:15 Ur Barbiturates Screen NEGATIVE (NEGATIVE) 01/01/17 11:15 Ur Tricyclics Screen NEGATIVE (NEGATIVE) 01/01/17 11:15 Ur Phencyclidine Scrn NEGATIVE (NEGATIVE) 01/01/17 11:15 Amphetamines Screen POSITIVE (NEGATIVE) H 01/01/17 11:15 U Methamphetamines Scrn POSITIVE (NEGATIVE) H 01/01/17 11:15 U Benzodiazepines Scrn NEGATIVE (NEGATIVE) 01/01/17 11:15 U Cocaine Metab Screen NEGATIVE (NEGATIVE) 01/01/17 11:15 U Cannabinoids Screen NEGATIVE (NEGATIVE) 01/01/17 11:15 - Physical Exam Vitals and I&O: Vital Signs Temp 98.6 F 01/01/17 11:30 Pulse 73 01/01/17 11:30 Resp 16 01/01/17 11:30 BP 155/94 01/01/17 11:30 Pulse Ox 99 01/01/17 11:30 Intake & Output 12/31/16 01/01/17 01/01/17 18:59 06:59 18:59 Intake Total 1500 Balance 1500 Weight (lbs) 118.388 kg 118.161 kg Intake: Intake, IV Amount 1000 D5-0.9%Ns 1,000 ml @ 80 1000 mls/hr IV .[id number] [facility] Rx #:[id number] Oral 500 Other: # Voids 3 # Bowel Movements 0 Active Medications: Current Medications Acetaminophen (Tylenol) 650 mg PO Q4H PRN PRN Reason: Pain Or Fever above 101 Stop: 03/01/17 07:57 Acetaminophen/Hydrocodone Bitart ([place] 5mg/325mg) 1 tab PO Q4H PRN PRN Reason: Pain (Severe) Stop: 03/01/17 07:57 Albuterol Sulfate (Albuterol 2.5mg/3ml Neb Ud) 2.5 mg HHN Q2HRT PRN PRN Reason: Shortness of Breath or Wheeze Stop: 03/01/17 07:57 Dextrose/Sodium Chloride (D5-0.9%Ns) 1,000 mls @ 80 mls/hr IV .[id number] ADDISON Stop: 03/01/17 07:59 Last Admin: 01/01/17 09:17 Dose: 80 mls/hr Lactated Ringer's (Lactated Ringer) 1,000 mls @ 0 mls/hr IV .Q0M ADDISON PRN Reason: TKO Stop: 01/02/17 11:14 Ipratropium [place] (Atrovent Neb 0.5mg/2.5ml) 0.5 mg IH Q2HRT PRN PRN Reason: Shortness of Breath or Wheeze Stop: 03/01/17 07:57 Meperidine HCl (Demerol) 12.5 mg IVP UD PRN PRN Reason: POST-OP PAIN Stop: 01/02/17 11:08 Morphine Sulfate (Morphine) 2 mg IVP Q4H PRN PRN Reason: Pain (Moderate) Stop: 03/01/17 03:44 Last Admin: 01/01/17 08:57 Dose: 2 mg Ondansetron HCl (Zofran) 4 mg IV Q8H PRN PRN Reason: Nausea / Vomiting Stop: 03/01/17 07:57 Ondansetron HCl (Zofran) 4 mg IV PRN PRN PRN Reason: Nausea / Vomiting Stop: 01/02/17 11:08 Zolpidem Tartrate (Ambien) 10 mg PO HS PRN PRN Reason: Insomnia Stop: 03/01/17 07:57
--- NOTE | 2017-01-01 14:27 | Operative Report ---
DATE OF SURGERY: 01/01/2017 PREOPERATIVE DIAGNOSES: 1. Recurrent right inguinal hernia. 2. Left inguinal hernia. 3. Amphetamine drug use. Prior to surgery, the patient was seen by Natanael, insurance application investigator for the Hospital to quality the patient for medical aid. The patient refused to see them yesterday. Today, he is not as somnolent as yesterday and now wants to have his hernia repair done. He has in addition to the right inguinal hernia also large one on the left side. Informed consent discussed with the patient regarding possible complications, especially as he takes amphetamines and positive on drug screen. He is not to do any heavy lifting for 6 weeks because of the danger of recurrence. The patient apparently seems to understand this. The anesthesiologist, Dr. Bro, is at bedside as well to warn him about the complications. They both understand each other in [place] language. OPERATIVE FINDINGS:1. Large recurrent right inguinal hernia 2. direct inguinal hernia left OPERATION DONE: 1. Repair of recurrent right inguinal hernia with the use of PerFix plug, large size. 2. Repair of left direct inguinal hernia with use of a large PerFix plug. ESTIMATED BLOOD LOSS: 10 mL. OPERATIVE FINDINGS: There were lot of adhesions and difficulty in outlying anatomy on the right recurrent hernia. Finally, the defect is discovered as that of a direct one. The defect was treated with the placement of large PerFix plug sutured in place with the use of #1 nylon. This was then injected around the area of the repair with 0.5% Marcaine with epinephrine. The subcutaneous tissue closed with 3-0 Vicryl and the skin with subcuticular suture of 4-0 Vicryl. Dermabond was placed over the incision for dressing. On the left side, a large direct inguinal hernia was likewise discovered. This was treated with PerFix plug, large one as well. We used PerFix plugs with #1 nylon in 4 quadrants. The subcutaneous tissue closed with 3-0 Vicryl and the skin with subcuticular suture of 4-0 Vicryl. Both testicles were replaced in the scrotal sac. The patient tolerated the procedure well. JOB# [id number] [facility]Donald
--- NOTE | 2017-01-01 19:12 | Internal Medicine Prog Note ---
Internal Medicine Subjective - Subjective Service Date: 01/01/17 (s/p hernia repair, c/o incision site pain) Patient seen and examined:: with staff Patient is:: awake, verbal Per staff patient has:: tolerating meds Internal Medicine Objective - Results Result Diagrams: 01/01/17 10:00 01/01/17 10:00 Recent Labs: Laboratory Last Values WBC 6.7 Th/cmm (4.8-10.8) 01/01/17 10:00 RBC 4.58 Mil/cmm (4.30-5.70) 01/01/17 10:00 Hgb 13.5 gm/dL (12-16) 01/01/17 10:00 Hct 39.8 % (41.0-60) L D 01/01/17 10:00 MCV 86.8 fl (80-99) 01/01/17 10:00 MCH 29.5 pg (26.0-30.0) 01/01/17 10:00 MCHC Differential 34.0 pg (28.0-36.0) 01/01/17 10:00 RDW 13.2 % (11.5-20.0) 01/01/17 10:00 Plt Count 268 Th/cmm (150-400) 01/01/17 10:00 MPV 8.2 fl 01/01/17 10:00 Neutrophils % 66.7 % (40.0-80.0) 01/01/17 10:00 Lymphocytes % 23.8 % (20.0-50.0) 01/01/17 10:00 Monocytes % 7.0 % (2.0-10.0) 01/01/17 10:00 Eosinophils % 1.8 % (0.0-5.0) 01/01/17 10:00 Basophils % 0.7 % (0.0-2.0) 01/01/17 10:00 PT 9.3 SECONDS (9.5-11.5) L 12/31/16 00:04 INR 0.90 (0.5-1.4) 12/31/16 00:04 Sodium 134 mEq/L (136-145) L 01/01/17 10:00 Potassium 3.8 mEq/L (3.5-5.1) 01/01/17 10:00 Chloride 103 mEq/L (98-107) 01/01/17 10:00 Carbon Dioxide 28.5 mEq/L (21.0-31.0) 01/01/17 10:00 Anion Gap 6.3 (7.0-16.0) L 01/01/17 10:00 BUN 10 mg/dL (7-25) 01/01/17 10:00 Creatinine 0.7 mg/dL (0.7-1.3) 01/01/17 10:00 Est GFR ( Amer) > 60.0 ml/min (>90) 01/01/17 10:00 Est GFR (Non-Af Amer) > 60.0 ml/min 01/01/17 10:00 BUN/Creatinine Ratio 14.3 01/01/17 10:00 Glucose 101 mg/dL (70-105) 01/01/17 10:00 Calcium 9.2 mg/dL (8.6-10.3) 01/01/17 10:00 Total Bilirubin 0.4 mg/dL (0.3-1.0) 01/01/17 10:00 AST 17 U/L (13-39) 01/01/17 10:00 ALT 17 U/L (7-52) 01/01/17 10:00 Alkaline Phosphatase 79 U/L (34-104) 01/01/17 10:00 Creatine Kinase 255 U/L (30-223) H 12/31/16 00:04 CK-MB (CK-2) 15.5 ng/mL (0.6-6.3) H 12/31/16 00:04 Troponin I < 0.01 ng/mL (0.01-0.05) L 12/31/16 00:04 B-Natriuretic Peptide 27.2 pg/mL (5.0-100.0) 12/31/16 00:04 Total Protein 7.0 gm/dL (6.0-8.3) 01/01/17 10:00 Albumin 4.0 gm/dL (4.2-5.5) L 01/01/17 10:00 Globulin 3.0 gm/dL 01/01/17 10:00 Albumin/Globulin Ratio 1.3 (1.0-1.8) 01/01/17 10:00 Triglycerides 61 mg/dL (<150) 12/31/16 00:04 Cholesterol 135 mg/dL (<200) 12/31/16 00:04 LDL Cholesterol Direct 103 mg/dL (75-193) 12/31/16 00:04 HDL Cholesterol 33 mg/dL (23-92) 12/31/16 00:04 Amylase 31 U/L (29-103) 12/31/16 00:04 Urine Opiates Screen POSITIVE (NEGATIVE) H 01/01/17 11:15 Urine Methadone Screen NEGATIVE (NEGATIVE) 01/01/17 11:15 Ur Barbiturates Screen NEGATIVE (NEGATIVE) 01/01/17 11:15 Ur Tricyclics Screen NEGATIVE (NEGATIVE) 01/01/17 11:15 Ur Phencyclidine Scrn NEGATIVE (NEGATIVE) 01/01/17 11:15 Amphetamines Screen POSITIVE (NEGATIVE) H 01/01/17 11:15 U Methamphetamines Scrn POSITIVE (NEGATIVE) H 01/01/17 11:15 U Benzodiazepines Scrn NEGATIVE (NEGATIVE) 01/01/17 11:15 U Cocaine Metab Screen NEGATIVE (NEGATIVE) 01/01/17 11:15 U Cannabinoids Screen NEGATIVE (NEGATIVE) 01/01/17 11:15 - Physical Exam Vitals and I&O: Vital Signs Temp 98.1 F 01/01/17 16:00 Pulse 82 01/01/17 16:00 Resp 20 01/01/17 16:00 BP 102/62 01/01/17 16:00 Pulse Ox 95 01/01/17 16:00 Intake & Output 01/01/17 01/01/17 01/02/17 06:59 18:59 06:59 Intake Total 1500 520 Balance 1500 520 Weight (lbs) 260 lb 8 oz 260 lb 8 oz Intake: Intake, IV Amount 1000 D5-0.9%Ns 1,000 ml @ 80 1000 mls/hr IV .[id number] [facility] Rx #:[id number] Oral 500 520 Other: # Voids 3 3 # Bowel Movements 0 1 Active Medications: Current Medications Acetaminophen (Tylenol) 650 mg PO Q4H PRN PRN Reason: Pain Or Fever above 101 Stop: 03/01/17 07:57 Acetaminophen/Hydrocodone Bitart ([place] 5mg/325mg) 1 tab PO Q4H PRN PRN Reason: Pain (Severe) Stop: 03/01/17 07:57 Albuterol Sulfate (Albuterol 2.5mg/3ml Neb Ud) 2.5 mg HHN Q2HRT PRN PRN Reason: Shortness of Breath or Wheeze Stop: 03/01/17 07:57 Dextrose/Sodium Chloride (D5-0.9%Ns) 1,000 mls @ 80 mls/hr IV .[id number] ADDISON Stop: 03/01/17 07:59 Last Admin: 01/01/17 09:17 Dose: 80 mls/hr Lactated Ringer's (Lactated Ringer) 1,000 mls @ 0 mls/hr IV .Q0M ADDISON PRN Reason: TKO Stop: 01/02/17 11:14 Ipratropium [place] (Atrovent Neb 0.5mg/2.5ml) 0.5 mg IH Q2HRT PRN PRN Reason: Shortness of Breath or Wheeze Stop: 03/01/17 07:57 Meperidine HCl (Demerol) 12.5 mg IVP UD PRN PRN Reason: POST-OP PAIN Stop: 01/02/17 11:08 Morphine Sulfate (Morphine) 2 mg IVP Q4H PRN PRN Reason: Pain (Moderate) Stop: 03/01/17 03:44 Last Admin: 01/01/17 18:56 Dose: 2 mg Ondansetron HCl (Zofran) 4 mg IV Q8H PRN PRN Reason: Nausea / Vomiting Stop: 03/01/17 07:57 Ondansetron HCl (Zofran) 4 mg IV PRN PRN PRN Reason: Nausea / Vomiting Stop: 01/02/17 11:08 Zolpidem Tartrate (Ambien) 10 mg PO HS PRN PRN Reason: Insomnia Stop: 03/01/17 07:57 General: alert HEENT: NC/AT, PERRLA Neck: Supple Lungs: CTAB Cardiovascular: RRR, Normal S1, Normal S2, without murmur Abdomen: soft, non-tender, non-distended, positive bowel sound Extremities: excoriation Neurological: alert Internal Medicine Assmt/Plan - Assessment Assessment: Inguinal hernia s/p repair of left/right direct inguinal hernia Right recurrent Groin pain - Plan Plan: pain mgmt ivf for hydration am labs continue current plan of care
[2017-01-02] MEDS: D5-0.9%NS 1,000 ML IV SCH (01:53)
[2017-01-02] MEDS: Hydrocodone/APAP 5mg/325mg Tab PO PRN ×2 (01:59→10:47)
[2017-01-02] MEDS: Morphine Sulfate 2 mg/mL 1mL Syr IVP PRN ×5 (04:40→22:42)
[2017-01-02 05:53] LABS: % BASOPHILS 0.2 % (0.0-2.0); % EOSINOPHILS 0.7 % (0.0-5.0); % LYMPHOCYTES 14.8 % (20.0-50.0); % MONOCYTES 8.1 % (2.0-10.0); % NEUTROPHILS 76.2 % (40.0-80.0); HEMATOCRIT 36.8 % (41.0-60); HEMOGLOBIN 12.8 gm/dL (12-16); MEAN CELL VOLUME 86.1 fl (80-99); MEAN CORPUSCULAR HEMOGLOBIN 29.8 pg (26.0-30.0); MEAN CORPUSCULAR HGB CONC 34.7 pg (28.0-36.0); MEAN PLATELET VOLUME 8.2 fl; PLATELET COUNT 239 Th/cmm (150-400); RED BLOOD COUNT 4.27 Mil/cmm (4.30-5.70); RED CELL DISTRIBUTION WIDTH 13.6 % (11.5-20.0)
[2017-01-02 05:56] LABS: WHITE BLOOD COUNT 10.4 Th/cmm (4.8-10.8)
[2017-01-02 06:11] LABS: ALB/GLOB RATIO 1.3 (1.0-1.8); ALKALINE PHOSPHATASE 68 U/L (34-104); ANION GAP 7.7 (7.0-16.0); BILIRUBIN,TOTAL 0.6 mg/dL (0.3-1.0); BUN - UREA NITROGEN 11 mg/dL (7-25); BUN/CREATININE RATIO 15.7; CALCIUM SERUM 8.9 mg/dL (8.6-10.3); CARBON DIOXIDE 27.1 mEq/L (21.0-31.0); CHLORIDE 103 mEq/L (98-107); CREATININE - SERUM 0.7 mg/dL (0.7-1.3); GLUCOSE 104 mg/dL (70-105); POTASSIUM SERUM 3.8 mEq/L (3.5-5.1); SGOT 14 U/L (13-39); SGPT/ALT 14 U/L (7-52); SODIUM SERUM 134 mEq/L (136-145)
--- NOTE | 2017-01-02 13:20 | General Progress Note ---
Subjective - Review of Systems Service Date: 01/02/17 Events since last encounter: labs noted incisions clean sleepy, demands pain shots - will stop this and give oral narcotics only Objective - Results Result Diagrams: 01/02/17 05:40 01/02/17 05:40 Recent Labs: Laboratory Last Values WBC 10.4 Th/cmm (4.8-10.8) D 01/02/17 05:40 RBC 4.27 Mil/cmm (4.30-5.70) L 01/02/17 05:40 Hgb 12.8 gm/dL (12-16) 01/02/17 05:40 Hct 36.8 % (41.0-60) L 01/02/17 05:40 MCV 86.1 fl (80-99) 01/02/17 05:40 MCH 29.8 pg (26.0-30.0) 01/02/17 05:40 MCHC Differential 34.7 pg (28.0-36.0) 01/02/17 05:40 RDW 13.6 % (11.5-20.0) 01/02/17 05:40 Plt Count 239 Th/cmm (150-400) 01/02/17 05:40 MPV 8.2 fl 01/02/17 05:40 Neutrophils % 76.2 % (40.0-80.0) 01/02/17 05:40 Lymphocytes % 14.8 % (20.0-50.0) L 01/02/17 05:40 Monocytes % 8.1 % (2.0-10.0) 01/02/17 05:40 Eosinophils % 0.7 % (0.0-5.0) 01/02/17 05:40 Basophils % 0.2 % (0.0-2.0) 01/02/17 05:40 PT 9.3 SECONDS (9.5-11.5) L 12/31/16 00:04 INR 0.90 (0.5-1.4) 12/31/16 00:04 Sodium 134 mEq/L (136-145) L 01/02/17 05:40 Potassium 3.8 mEq/L (3.5-5.1) 01/02/17 05:40 Chloride 103 mEq/L (98-107) 01/02/17 05:40 Carbon Dioxide 27.1 mEq/L (21.0-31.0) 01/02/17 05:40 Anion Gap 7.7 (7.0-16.0) 01/02/17 05:40 BUN 11 mg/dL (7-25) 01/02/17 05:40 Creatinine 0.7 mg/dL (0.7-1.3) 01/02/17 05:40 Est GFR ( Amer) > 60.0 ml/min (>90) 01/02/17 05:40 Est GFR (Non-Af Amer) > 60.0 ml/min 01/02/17 05:40 BUN/Creatinine Ratio 15.7 01/02/17 05:40 Glucose 104 mg/dL (70-105) 01/02/17 05:40 Calcium 8.9 mg/dL (8.6-10.3) 01/02/17 05:40 Total Bilirubin 0.6 mg/dL (0.3-1.0) 01/02/17 05:40 AST 14 U/L (13-39) 01/02/17 05:40 ALT 14 U/L (7-52) 01/02/17 05:40 Alkaline Phosphatase 68 U/L (34-104) 01/02/17 05:40 Creatine Kinase 255 U/L (30-223) H 12/31/16 00:04 CK-MB (CK-2) 15.5 ng/mL (0.6-6.3) H 12/31/16 00:04 Troponin I < 0.01 ng/mL (0.01-0.05) L 12/31/16 00:04 B-Natriuretic Peptide 27.2 pg/mL (5.0-100.0) 12/31/16 00:04 Total Protein 6.6 gm/dL (6.0-8.3) 01/02/17 05:40 Albumin 3.7 gm/dL (4.2-5.5) L 01/02/17 05:40 Globulin 2.9 gm/dL 01/02/17 05:40 Albumin/Globulin Ratio 1.3 (1.0-1.8) 01/02/17 05:40 Triglycerides 61 mg/dL (<150) 12/31/16 00:04 Cholesterol 135 mg/dL (<200) 12/31/16 00:04 LDL Cholesterol Direct 103 mg/dL (75-193) 12/31/16 00:04 HDL Cholesterol 33 mg/dL (23-92) 12/31/16 00:04 Amylase 31 U/L (29-103) 12/31/16 00:04 Urine Opiates Screen POSITIVE (NEGATIVE) H 01/01/17 11:15 Urine Methadone Screen NEGATIVE (NEGATIVE) 01/01/17 11:15 Ur Barbiturates Screen NEGATIVE (NEGATIVE) 01/01/17 11:15 Ur Tricyclics Screen NEGATIVE (NEGATIVE) 01/01/17 11:15 Ur Phencyclidine Scrn NEGATIVE (NEGATIVE) 01/01/17 11:15 Amphetamines Screen POSITIVE (NEGATIVE) H 01/01/17 11:15 U Methamphetamines Scrn POSITIVE (NEGATIVE) H 01/01/17 11:15 U Benzodiazepines Scrn NEGATIVE (NEGATIVE) 01/01/17 11:15 U Cocaine Metab Screen NEGATIVE (NEGATIVE) 01/01/17 11:15 U Cannabinoids Screen NEGATIVE (NEGATIVE) 01/01/17 11:15 - Physical Exam Vitals and I&O: Vital Signs Temp 98.3 F 01/02/17 12:02 Pulse 81 01/02/17 12:02 Resp 16 01/02/17 12:02 BP 138/89 01/02/17 12:02 Pulse Ox 97 01/02/17 12:02 Intake & Output 01/01/17 01/02/17 01/02/17 18:59 06:59 18:59 Intake Total 520 1000 Balance 520 1000 Weight (lbs) 118.161 kg Intake: Intake, IV Amount 1000 D5-0.9%Ns 1,000 ml @ 80 1000 mls/hr IV .[id number] [facility] Rx #:[id number] Oral 520 Other: # Voids 3 # Bowel Movements 1 Active Medications: Current Medications Acetaminophen (Tylenol) 650 mg PO Q4H PRN PRN Reason: Pain Or Fever above 101 Stop: 03/01/17 07:57 Acetaminophen/Hydrocodone Bitart ([place] 5mg/325mg) 1 tab PO Q4H PRN PRN Reason: Pain (Severe) Stop: 03/01/17 07:57 Last Admin: 01/02/17 10:47 Dose: 1 tab Albuterol Sulfate (Albuterol 2.5mg/3ml Neb Ud) 2.5 mg HHN Q2HRT PRN PRN Reason: Shortness of Breath or Wheeze Stop: 03/01/17 07:57 Dextrose/Sodium Chloride (D5-0.9%Ns) 1,000 mls @ 80 mls/hr IV .[id number] ADDISON Stop: 03/01/17 07:59 Last Admin: 01/02/17 01:53 Dose: 80 mls/hr Ipratropium [place] (Atrovent Neb 0.5mg/2.5ml) 0.5 mg IH Q2HRT PRN PRN Reason: Shortness of Breath or Wheeze Stop: 03/01/17 07:57 Morphine Sulfate (Morphine) 2 mg IVP Q4H PRN PRN Reason: Pain (Moderate) Stop: 03/01/17 03:44 Last Admin: 01/02/17 13:07 Dose: 2 mg Ondansetron HCl (Zofran) 4 mg IV Q8H PRN PRN Reason: Nausea / Vomiting Stop: 03/01/17 07:57 Zolpidem Tartrate (Ambien) 10 mg PO HS PRN PRN Reason: Insomnia Stop: 03/01/17 07:57 - Procedures Procedures: Procedures Procedure Code Date PRP I/CONNIE INIT REDUC >5 YR 82411 12/31/16 REREPAIR ING HERNIA REDUCE 85570 12/31/16 SUPPLEMENT BI INGUINAL REGION WITH SYNTH SUB, OPEN APPROACH [id number] 12/31/16
--- NOTE | 2017-01-02 13:28 | Internal Medicine Prog Note ---
Internal Medicine Subjective - Subjective Patient seen and examined:: with staff, chart reviewed Patient is:: awake, verbal, interactive, agitated Patient Complaints of:: congestion, bloated, unable to sleep Per staff patient has:: no adverse event, poor appetite, tolerating meds Internal Medicine Objective - Results Result Diagrams: 01/02/17 05:40 01/02/17 05:40 Recent Labs: Laboratory Last Values WBC 10.4 Th/cmm (4.8-10.8) D 01/02/17 05:40 RBC 4.27 Mil/cmm (4.30-5.70) L 01/02/17 05:40 Hgb 12.8 gm/dL (12-16) 01/02/17 05:40 Hct 36.8 % (41.0-60) L 01/02/17 05:40 MCV 86.1 fl (80-99) 01/02/17 05:40 MCH 29.8 pg (26.0-30.0) 01/02/17 05:40 MCHC Differential 34.7 pg (28.0-36.0) 01/02/17 05:40 RDW 13.6 % (11.5-20.0) 01/02/17 05:40 Plt Count 239 Th/cmm (150-400) 01/02/17 05:40 MPV 8.2 fl 01/02/17 05:40 Neutrophils % 76.2 % (40.0-80.0) 01/02/17 05:40 Lymphocytes % 14.8 % (20.0-50.0) L 01/02/17 05:40 Monocytes % 8.1 % (2.0-10.0) 01/02/17 05:40 Eosinophils % 0.7 % (0.0-5.0) 01/02/17 05:40 Basophils % 0.2 % (0.0-2.0) 01/02/17 05:40 PT 9.3 SECONDS (9.5-11.5) L 12/31/16 00:04 INR 0.90 (0.5-1.4) 12/31/16 00:04 Sodium 134 mEq/L (136-145) L 01/02/17 05:40 Potassium 3.8 mEq/L (3.5-5.1) 01/02/17 05:40 Chloride 103 mEq/L (98-107) 01/02/17 05:40 Carbon Dioxide 27.1 mEq/L (21.0-31.0) 01/02/17 05:40 Anion Gap 7.7 (7.0-16.0) 01/02/17 05:40 BUN 11 mg/dL (7-25) 01/02/17 05:40 Creatinine 0.7 mg/dL (0.7-1.3) 01/02/17 05:40 Est GFR ( Amer) > 60.0 ml/min (>90) 01/02/17 05:40 Est GFR (Non-Af Amer) > 60.0 ml/min 01/02/17 05:40 BUN/Creatinine Ratio 15.7 01/02/17 05:40 Glucose 104 mg/dL (70-105) 01/02/17 05:40 Calcium 8.9 mg/dL (8.6-10.3) 01/02/17 05:40 Total Bilirubin 0.6 mg/dL (0.3-1.0) 01/02/17 05:40 AST 14 U/L (13-39) 01/02/17 05:40 ALT 14 U/L (7-52) 01/02/17 05:40 Alkaline Phosphatase 68 U/L (34-104) 01/02/17 05:40 Creatine Kinase 255 U/L (30-223) H 12/31/16 00:04 CK-MB (CK-2) 15.5 ng/mL (0.6-6.3) H 12/31/16 00:04 Troponin I < 0.01 ng/mL (0.01-0.05) L 12/31/16 00:04 B-Natriuretic Peptide 27.2 pg/mL (5.0-100.0) 12/31/16 00:04 Total Protein 6.6 gm/dL (6.0-8.3) 01/02/17 05:40 Albumin 3.7 gm/dL (4.2-5.5) L 01/02/17 05:40 Globulin 2.9 gm/dL 01/02/17 05:40 Albumin/Globulin Ratio 1.3 (1.0-1.8) 01/02/17 05:40 Triglycerides 61 mg/dL (<150) 12/31/16 00:04 Cholesterol 135 mg/dL (<200) 12/31/16 00:04 LDL Cholesterol Direct 103 mg/dL (75-193) 12/31/16 00:04 HDL Cholesterol 33 mg/dL (23-92) 12/31/16 00:04 Amylase 31 U/L (29-103) 12/31/16 00:04 Urine Opiates Screen POSITIVE (NEGATIVE) H 01/01/17 11:15 Urine Methadone Screen NEGATIVE (NEGATIVE) 01/01/17 11:15 Ur Barbiturates Screen NEGATIVE (NEGATIVE) 01/01/17 11:15 Ur Tricyclics Screen NEGATIVE (NEGATIVE) 01/01/17 11:15 Ur Phencyclidine Scrn NEGATIVE (NEGATIVE) 01/01/17 11:15 Amphetamines Screen POSITIVE (NEGATIVE) H 01/01/17 11:15 U Methamphetamines Scrn POSITIVE (NEGATIVE) H 01/01/17 11:15 U Benzodiazepines Scrn NEGATIVE (NEGATIVE) 01/01/17 11:15 U Cocaine Metab Screen NEGATIVE (NEGATIVE) 01/01/17 11:15 U Cannabinoids Screen NEGATIVE (NEGATIVE) 01/01/17 11:15 - Physical Exam Vitals and I&O: Vital Signs Temp 98.3 F 01/02/17 12:02 Pulse 81 01/02/17 12:02 Resp 16 01/02/17 12:02 BP 138/89 01/02/17 12:02 Pulse Ox 97 01/02/17 12:02 Intake & Output 01/01/17 01/02/17 01/02/17 18:59 06:59 18:59 Intake Total 520 1000 Balance 520 1000 Weight (lbs) 118.161 kg Intake: Intake, IV Amount 1000 D5-0.9%Ns 1,000 ml @ 80 1000 mls/hr IV .[id number] [facility] Rx #:[id number] Oral 520 Other: # Voids 3 # Bowel Movements 1 Active Medications: Current Medications Acetaminophen (Tylenol) 650 mg PO Q4H PRN PRN Reason: Pain Or Fever above 101 Stop: 03/01/17 07:57 Acetaminophen/Hydrocodone Bitart ([place] 5mg/325mg) 1 tab PO Q4H PRN PRN Reason: Pain (Severe) Stop: 03/01/17 07:57 Last Admin: 01/02/17 10:47 Dose: 1 tab Albuterol Sulfate (Albuterol 2.5mg/3ml Neb Ud) 2.5 mg HHN Q2HRT PRN PRN Reason: Shortness of Breath or Wheeze Stop: 03/01/17 07:57 Dextrose/Sodium Chloride (D5-0.9%Ns) 1,000 mls @ 80 mls/hr IV .[id number] ADDISON Stop: 03/01/17 07:59 Last Admin: 01/02/17 01:53 Dose: 80 mls/hr Ipratropium [place] (Atrovent Neb 0.5mg/2.5ml) 0.5 mg IH Q2HRT PRN PRN Reason: Shortness of Breath or Wheeze Stop: 03/01/17 07:57 Morphine Sulfate (Morphine) 2 mg IVP Q4H PRN PRN Reason: Pain (Moderate) Stop: 03/01/17 03:44 Last Admin: 01/02/17 13:07 Dose: 2 mg Ondansetron HCl (Zofran) 4 mg IV Q8H PRN PRN Reason: Nausea / Vomiting Stop: 03/01/17 07:57 Zolpidem Tartrate (Ambien) 10 mg PO HS PRN PRN Reason: Insomnia Stop: 03/01/17 07:57 General: alert HEENT: NC/AT, PERRLA Neck: Supple Lungs: CTAB Cardiovascular: RRR, Normal S1, Normal S2, without murmur Abdomen: soft, non-tender, non-distended, positive bowel sound Extremities: excoriation Neurological: alert - Procedures Procedures: Procedures Procedure Code Date PRP I/CONNIE INIT REDUC >5 YR 08205 12/31/16 REREPAIR ING HERNIA REDUCE 28331 12/31/16 SUPPLEMENT BI INGUINAL REGION WITH SYNTH SUB, OPEN APPROACH [id number] 12/31/16 Internal Medicine Assmt/Plan - Assessment Assessment: Inguinal hernia s/p repair of left/right direct inguinal hernia Right recurrent Groin pain - Plan Plan: - Plan Plan: pain mgmt ivf for hydration am labs continue current plan of care
[2017-01-03] MEDS: Morphine Sulfate 2 mg/mL 1mL Syr IVP PRN ×3 (02:56→17:34)
[2017-01-03] MEDS: Hydrocodone/APAP 5mg/325mg Tab PO PRN ×3 (04:29→21:35)
[2017-01-03] MEDS: D5-0.9%NS 1,000 ML IV SCH ×2 (04:29→21:37)
--- NOTE | 2017-01-03 09:59 | General Progress Note ---
Subjective - Review of Systems Service Date: 01/03/17 Events since last encounter: labs ok continues to demand narcotics will ask Psych consult Objective - Results Result Diagrams: 01/02/17 05:40 01/02/17 05:40 Recent Labs: Laboratory Last Values WBC 10.4 Th/cmm (4.8-10.8) D 01/02/17 05:40 RBC 4.27 Mil/cmm (4.30-5.70) L 01/02/17 05:40 Hgb 12.8 gm/dL (12-16) 01/02/17 05:40 Hct 36.8 % (41.0-60) L 01/02/17 05:40 MCV 86.1 fl (80-99) 01/02/17 05:40 MCH 29.8 pg (26.0-30.0) 01/02/17 05:40 MCHC Differential 34.7 pg (28.0-36.0) 01/02/17 05:40 RDW 13.6 % (11.5-20.0) 01/02/17 05:40 Plt Count 239 Th/cmm (150-400) 01/02/17 05:40 MPV 8.2 fl 01/02/17 05:40 Neutrophils % 76.2 % (40.0-80.0) 01/02/17 05:40 Lymphocytes % 14.8 % (20.0-50.0) L 01/02/17 05:40 Monocytes % 8.1 % (2.0-10.0) 01/02/17 05:40 Eosinophils % 0.7 % (0.0-5.0) 01/02/17 05:40 Basophils % 0.2 % (0.0-2.0) 01/02/17 05:40 PT 9.3 SECONDS (9.5-11.5) L 12/31/16 00:04 INR 0.90 (0.5-1.4) 12/31/16 00:04 Sodium 134 mEq/L (136-145) L 01/02/17 05:40 Potassium 3.8 mEq/L (3.5-5.1) 01/02/17 05:40 Chloride 103 mEq/L (98-107) 01/02/17 05:40 Carbon Dioxide 27.1 mEq/L (21.0-31.0) 01/02/17 05:40 Anion Gap 7.7 (7.0-16.0) 01/02/17 05:40 BUN 11 mg/dL (7-25) 01/02/17 05:40 Creatinine 0.7 mg/dL (0.7-1.3) 01/02/17 05:40 Est GFR ( Amer) > 60.0 ml/min (>90) 01/02/17 05:40 Est GFR (Non-Af Amer) > 60.0 ml/min 01/02/17 05:40 BUN/Creatinine Ratio 15.7 01/02/17 05:40 Glucose 104 mg/dL (70-105) 01/02/17 05:40 Calcium 8.9 mg/dL (8.6-10.3) 01/02/17 05:40 Total Bilirubin 0.6 mg/dL (0.3-1.0) 01/02/17 05:40 AST 14 U/L (13-39) 01/02/17 05:40 ALT 14 U/L (7-52) 01/02/17 05:40 Alkaline Phosphatase 68 U/L (34-104) 01/02/17 05:40 Creatine Kinase 255 U/L (30-223) H 12/31/16 00:04 CK-MB (CK-2) 15.5 ng/mL (0.6-6.3) H 12/31/16 00:04 Troponin I < 0.01 ng/mL (0.01-0.05) L 12/31/16 00:04 B-Natriuretic Peptide 27.2 pg/mL (5.0-100.0) 12/31/16 00:04 Total Protein 6.6 gm/dL (6.0-8.3) 01/02/17 05:40 Albumin 3.7 gm/dL (4.2-5.5) L 01/02/17 05:40 Globulin 2.9 gm/dL 01/02/17 05:40 Albumin/Globulin Ratio 1.3 (1.0-1.8) 01/02/17 05:40 Triglycerides 61 mg/dL (<150) 12/31/16 00:04 Cholesterol 135 mg/dL (<200) 12/31/16 00:04 LDL Cholesterol Direct 103 mg/dL (75-193) 12/31/16 00:04 HDL Cholesterol 33 mg/dL (23-92) 12/31/16 00:04 Amylase 31 U/L (29-103) 12/31/16 00:04 Urine Opiates Screen POSITIVE (NEGATIVE) H 01/01/17 11:15 Urine Methadone Screen NEGATIVE (NEGATIVE) 01/01/17 11:15 Ur Barbiturates Screen NEGATIVE (NEGATIVE) 01/01/17 11:15 Ur Tricyclics Screen NEGATIVE (NEGATIVE) 01/01/17 11:15 Ur Phencyclidine Scrn NEGATIVE (NEGATIVE) 01/01/17 11:15 Amphetamines Screen POSITIVE (NEGATIVE) H 01/01/17 11:15 U Methamphetamines Scrn POSITIVE (NEGATIVE) H 01/01/17 11:15 U Benzodiazepines Scrn NEGATIVE (NEGATIVE) 01/01/17 11:15 U Cocaine Metab Screen NEGATIVE (NEGATIVE) 01/01/17 11:15 U Cannabinoids Screen NEGATIVE (NEGATIVE) 01/01/17 11:15 - Physical Exam Vitals and I&O: Vital Signs Temp 97.6 F 01/03/17 04:00 Pulse 76 01/03/17 07:32 Resp 16 01/03/17 07:32 BP 138/66 01/03/17 04:00 Pulse Ox 98 01/03/17 07:32 Intake & Output 01/02/17 01/03/17 01/03/17 18:59 06:59 18:59 Intake Total 2000 Output Total 1450 Balance 550 Weight (lbs) 117.934 kg Intake: Intake, IV Amount 1000 D5-0.9%Ns 1,000 ml @ 80 1000 mls/hr IV .[id number] [facility] Rx #:[id number] Oral 1000 Output: Urine 1450 Other: # Voids 2 # Bowel Movements 0 Active Medications: Current Medications Acetaminophen (Tylenol) 650 mg PO Q4H PRN PRN Reason: Pain Or Fever above 101 Stop: 03/01/17 07:57 Acetaminophen/Hydrocodone Bitart ([place] 5mg/325mg) 1 tab PO Q4H PRN PRN Reason: Pain (Severe) Stop: 03/01/17 07:57 Last Admin: 01/03/17 04:29 Dose: 1 tab Albuterol Sulfate (Albuterol 2.5mg/3ml Neb Ud) 2.5 mg HHN Q2HRT PRN PRN Reason: Shortness of Breath or Wheeze Stop: 03/01/17 07:57 Dextrose/Sodium Chloride (D5-0.9%Ns) 1,000 mls @ 80 mls/hr IV .[id number] [facility] Stop: 03/01/17 07:59 Last Admin: 01/03/17 04:29 Dose: 80 mls/hr Ipratropium [place] (Atrovent Neb 0.5mg/2.5ml) 0.5 mg IH Q2HRT PRN PRN Reason: Shortness of Breath or Wheeze Stop: 03/01/17 07:57 Morphine Sulfate (Morphine) 2 mg IVP Q4H PRN PRN Reason: Pain (Moderate) Stop: 03/01/17 03:44 Last Admin: 01/03/17 08:36 Dose: 2 mg Ondansetron HCl (Zofran) 4 mg IV Q8H PRN PRN Reason: Nausea / Vomiting Stop: 03/01/17 07:57 Zolpidem Tartrate (Ambien) 10 mg PO HS PRN PRN Reason: Insomnia Stop: 03/01/17 07:57 - Procedures Procedures: Procedures Procedure Code Date PRP I/CONNIE INIT REDUC >5 YR 77310 12/31/16 REREPAIR ING HERNIA REDUCE 60229 12/31/16 SUPPLEMENT BI INGUINAL REGION WITH SYNTH SUB, OPEN APPROACH [id number] 12/31/16
--- NOTE | 2017-01-03 11:46 | Internal Medicine Prog Note ---
Internal Medicine Subjective - Subjective Patient seen and examined:: with staff, chart reviewed Patient is:: awake, verbal, interactive, agitated Patient Complaints of:: congestion, bloated, unable to sleep Per staff patient has:: no adverse event, poor appetite, tolerating meds Internal Medicine Objective - Results Result Diagrams: 01/02/17 05:40 01/02/17 05:40 Recent Labs: Laboratory Last Values WBC 10.4 Th/cmm (4.8-10.8) D 01/02/17 05:40 RBC 4.27 Mil/cmm (4.30-5.70) L 01/02/17 05:40 Hgb 12.8 gm/dL (12-16) 01/02/17 05:40 Hct 36.8 % (41.0-60) L 01/02/17 05:40 MCV 86.1 fl (80-99) 01/02/17 05:40 MCH 29.8 pg (26.0-30.0) 01/02/17 05:40 MCHC Differential 34.7 pg (28.0-36.0) 01/02/17 05:40 RDW 13.6 % (11.5-20.0) 01/02/17 05:40 Plt Count 239 Th/cmm (150-400) 01/02/17 05:40 MPV 8.2 fl 01/02/17 05:40 Neutrophils % 76.2 % (40.0-80.0) 01/02/17 05:40 Lymphocytes % 14.8 % (20.0-50.0) L 01/02/17 05:40 Monocytes % 8.1 % (2.0-10.0) 01/02/17 05:40 Eosinophils % 0.7 % (0.0-5.0) 01/02/17 05:40 Basophils % 0.2 % (0.0-2.0) 01/02/17 05:40 PT 9.3 SECONDS (9.5-11.5) L 12/31/16 00:04 INR 0.90 (0.5-1.4) 12/31/16 00:04 Sodium 134 mEq/L (136-145) L 01/02/17 05:40 Potassium 3.8 mEq/L (3.5-5.1) 01/02/17 05:40 Chloride 103 mEq/L (98-107) 01/02/17 05:40 Carbon Dioxide 27.1 mEq/L (21.0-31.0) 01/02/17 05:40 Anion Gap 7.7 (7.0-16.0) 01/02/17 05:40 BUN 11 mg/dL (7-25) 01/02/17 05:40 Creatinine 0.7 mg/dL (0.7-1.3) 01/02/17 05:40 Est GFR ( Amer) > 60.0 ml/min (>90) 01/02/17 05:40 Est GFR (Non-Af Amer) > 60.0 ml/min 01/02/17 05:40 BUN/Creatinine Ratio 15.7 01/02/17 05:40 Glucose 104 mg/dL (70-105) 01/02/17 05:40 Calcium 8.9 mg/dL (8.6-10.3) 01/02/17 05:40 Total Bilirubin 0.6 mg/dL (0.3-1.0) 01/02/17 05:40 AST 14 U/L (13-39) 01/02/17 05:40 ALT 14 U/L (7-52) 01/02/17 05:40 Alkaline Phosphatase 68 U/L (34-104) 01/02/17 05:40 Creatine Kinase 255 U/L (30-223) H 12/31/16 00:04 CK-MB (CK-2) 15.5 ng/mL (0.6-6.3) H 12/31/16 00:04 Troponin I < 0.01 ng/mL (0.01-0.05) L 12/31/16 00:04 B-Natriuretic Peptide 27.2 pg/mL (5.0-100.0) 12/31/16 00:04 Total Protein 6.6 gm/dL (6.0-8.3) 01/02/17 05:40 Albumin 3.7 gm/dL (4.2-5.5) L 01/02/17 05:40 Globulin 2.9 gm/dL 01/02/17 05:40 Albumin/Globulin Ratio 1.3 (1.0-1.8) 01/02/17 05:40 Triglycerides 61 mg/dL (<150) 12/31/16 00:04 Cholesterol 135 mg/dL (<200) 12/31/16 00:04 LDL Cholesterol Direct 103 mg/dL (75-193) 12/31/16 00:04 HDL Cholesterol 33 mg/dL (23-92) 12/31/16 00:04 Amylase 31 U/L (29-103) 12/31/16 00:04 Urine Opiates Screen POSITIVE (NEGATIVE) H 01/01/17 11:15 Urine Methadone Screen NEGATIVE (NEGATIVE) 01/01/17 11:15 Ur Barbiturates Screen NEGATIVE (NEGATIVE) 01/01/17 11:15 Ur Tricyclics Screen NEGATIVE (NEGATIVE) 01/01/17 11:15 Ur Phencyclidine Scrn NEGATIVE (NEGATIVE) 01/01/17 11:15 Amphetamines Screen POSITIVE (NEGATIVE) H 01/01/17 11:15 U Methamphetamines Scrn POSITIVE (NEGATIVE) H 01/01/17 11:15 U Benzodiazepines Scrn NEGATIVE (NEGATIVE) 01/01/17 11:15 U Cocaine Metab Screen NEGATIVE (NEGATIVE) 01/01/17 11:15 U Cannabinoids Screen NEGATIVE (NEGATIVE) 01/01/17 11:15 - Physical Exam Vitals and I&O: Vital Signs Temp 97.6 F 01/03/17 04:00 Pulse 76 01/03/17 07:32 Resp 16 01/03/17 07:32 BP 138/66 01/03/17 04:00 Pulse Ox 98 01/03/17 07:32 Intake & Output 01/02/17 01/03/17 01/03/17 18:59 06:59 18:59 Intake Total 2000 Output Total 1450 Balance 550 Weight (lbs) 117.934 kg Intake: Intake, IV Amount 1000 D5-0.9%Ns 1,000 ml @ 80 1000 mls/hr IV .[id number] [facility] Rx #:[id number] Oral 1000 Output: Urine 1450 Other: # Voids 2 # Bowel Movements 0 Active Medications: Current Medications Acetaminophen (Tylenol) 650 mg PO Q4H PRN PRN Reason: Pain Or Fever above 101 Stop: 03/01/17 07:57 Acetaminophen/Hydrocodone Bitart ([place] 5mg/325mg) 1 tab PO Q4H PRN PRN Reason: Pain (Severe) Stop: 03/01/17 07:57 Last Admin: 01/03/17 04:29 Dose: 1 tab Albuterol Sulfate (Albuterol 2.5mg/3ml Neb Ud) 2.5 mg HHN Q2HRT PRN PRN Reason: Shortness of Breath or Wheeze Stop: 03/01/17 07:57 Dextrose/Sodium Chloride (D5-0.9%Ns) 1,000 mls @ 80 mls/hr IV .[id number] [facility] Stop: 03/01/17 07:59 Last Admin: 01/03/17 04:29 Dose: 80 mls/hr Ipratropium [place] (Atrovent Neb 0.5mg/2.5ml) 0.5 mg IH Q2HRT PRN PRN Reason: Shortness of Breath or Wheeze Stop: 03/01/17 07:57 Morphine Sulfate (Morphine) 2 mg IVP Q4H PRN PRN Reason: Pain (Moderate) Stop: 03/01/17 03:44 Last Admin: 01/03/17 08:36 Dose: 2 mg Ondansetron HCl (Zofran) 4 mg IV Q8H PRN PRN Reason: Nausea / Vomiting Stop: 03/01/17 07:57 Zolpidem Tartrate (Ambien) 10 mg PO HS PRN PRN Reason: Insomnia Stop: 03/01/17 07:57 General: alert HEENT: NC/AT, PERRLA Neck: Supple Lungs: CTAB Cardiovascular: RRR, Normal S1, Normal S2, without murmur Abdomen: soft, non-tender, non-distended, positive bowel sound Extremities: excoriation Neurological: alert - Procedures Procedures: Procedures Procedure Code Date PRP I/CONNIE INIT REDUC >5 YR 63738 12/31/16 REREPAIR ING HERNIA REDUCE 21956 12/31/16 SUPPLEMENT BI INGUINAL REGION WITH SYNTH SUB, OPEN APPROACH [id number] 12/31/16 Internal Medicine Assmt/Plan - Assessment Assessment: Inguinal hernia s/p repair of left/right direct inguinal hernia Right recurrent Groin pain narcotic seeking behavior - Plan Plan: - Plan Plan: pain mgmt ivf for hydration am labs continue current plan of care will refer to psych
[2017-01-04] MEDS: Morphine Sulfate 2 mg/mL 1mL Syr IVP PRN (03:00)
[2017-01-04 09:30] LABS: % EOSINOPHILS 3.9 % (0.0-5.0); % LYMPHOCYTES 11.6 % (20.0-50.0); % NEUTROPHILS 75.5 % (40.0-80.0); HEMATOCRIT 36.8 % (41.0-60); HEMOGLOBIN 12.4 gm/dL (12-16); MEAN CELL VOLUME 87.7 fl (80-99); MEAN CORPUSCULAR HEMOGLOBIN 29.5 pg (26.0-30.0); MEAN CORPUSCULAR HGB CONC 33.6 pg (28.0-36.0); MEAN PLATELET VOLUME 8.4 fl; NEUTROPHILE ABSOLUTE 7.4 Th/cmm (1.8-8.0); PLATELET COUNT 229 Th/cmm (150-400); RED CELL DISTRIBUTION WIDTH 13.1 % (11.5-20.0); WHITE BLOOD COUNT 9.8 Th/cmm (4.8-10.8)
[2017-01-04 10:12] LABS: ALB/GLOB RATIO 1.1 (1.0-1.8); ALKALINE PHOSPHATASE 69 U/L (34-104); ANION GAP 8.5 (7.0-16.0); BILIRUBIN,TOTAL 0.5 mg/dL (0.3-1.0); BUN - UREA NITROGEN 12 mg/dL (7-25); BUN/CREATININE RATIO 17.1; CALCIUM SERUM 9.2 mg/dL (8.6-10.3); CARBON DIOXIDE 25.9 mEq/L (21.0-31.0); CHLORIDE 100 mEq/L (98-107); CREATININE - SERUM 0.7 mg/dL (0.7-1.3); GLUCOSE 155 mg/dL (70-105); POTASSIUM SERUM 3.4 mEq/L (3.5-5.1); SGOT 20 U/L (13-39); SGPT/ALT 25 U/L (7-52); SODIUM SERUM 131 mEq/L (136-145)
[2017-01-04] MEDS: Hydrocodone/APAP 5mg/325mg Tab PO PRN ×2 (12:21→18:16)
[2017-01-04] MEDS ORDERED: Potassium Chloride 20 mEq ER Tab PO ONE (12:48)
--- NOTE | 2017-01-04 13:08 | Internal Medicine Prog Note ---
Internal Medicine Subjective - Subjective Patient seen and examined:: with staff, chart reviewed Patient is:: awake, verbal, interactive, agitated Patient Complaints of:: congestion, bloated, unable to sleep Per staff patient has:: no adverse event, poor appetite, tolerating meds Internal Medicine Objective - Results Result Diagrams: 01/04/17 09:25 01/04/17 09:25 Recent Labs: Laboratory Last Values WBC 9.8 Th/cmm (4.8-10.8) 01/04/17 09:25 RBC 4.20 Mil/cmm (4.30-5.70) L 01/04/17 09:25 Hgb 12.4 gm/dL (12-16) 01/04/17 09:25 Hct 36.8 % (41.0-60) L 01/04/17 09:25 MCV 87.7 fl (80-99) 01/04/17 09:25 MCH 29.5 pg (26.0-30.0) 01/04/17 09:25 MCHC Differential 33.6 pg (28.0-36.0) 01/04/17 09:25 RDW 13.1 % (11.5-20.0) 01/04/17 09:25 Plt Count 229 Th/cmm (150-400) 01/04/17 09:25 MPV 8.4 fl 01/04/17 09:25 Neutrophils % 75.5 % (40.0-80.0) 01/04/17 09:25 Lymphocytes % 11.6 % (20.0-50.0) L 01/04/17 09:25 Monocytes % 8.0 % (2.0-10.0) 01/04/17 09:25 Eosinophils % 3.9 % (0.0-5.0) 01/04/17 09:25 Basophils % 1.0 % (0.0-2.0) 01/04/17 09:25 PT 9.3 SECONDS (9.5-11.5) L 12/31/16 00:04 INR 0.90 (0.5-1.4) 12/31/16 00:04 Sodium 131 mEq/L (136-145) L 01/04/17 09:25 Potassium 3.4 mEq/L (3.5-5.1) L 01/04/17 09:25 Chloride 100 mEq/L (98-107) 01/04/17 09:25 Carbon Dioxide 25.9 mEq/L (21.0-31.0) 01/04/17 09:25 Anion Gap 8.5 (7.0-16.0) 01/04/17 09:25 BUN 12 mg/dL (7-25) 01/04/17 09:25 Creatinine 0.7 mg/dL (0.7-1.3) 01/04/17 09:25 Est GFR ( Amer) > 60.0 ml/min (>90) 01/04/17 09:25 Est GFR (Non-Af Amer) > 60.0 ml/min 01/04/17 09:25 BUN/Creatinine Ratio 17.1 01/04/17 09:25 Glucose 155 mg/dL (70-105) H 01/04/17 09:25 Calcium 9.2 mg/dL (8.6-10.3) 01/04/17 09:25 Total Bilirubin 0.5 mg/dL (0.3-1.0) 01/04/17 09:25 AST 20 U/L (13-39) 01/04/17 09:25 ALT 25 U/L (7-52) 01/04/17 09:25 Alkaline Phosphatase 69 U/L (34-104) 01/04/17 09:25 Creatine Kinase 255 U/L (30-223) H 12/31/16 00:04 CK-MB (CK-2) 15.5 ng/mL (0.6-6.3) H 12/31/16 00:04 Troponin I < 0.01 ng/mL (0.01-0.05) L 12/31/16 00:04 B-Natriuretic Peptide 27.2 pg/mL (5.0-100.0) 12/31/16 00:04 Total Protein 7.0 gm/dL (6.0-8.3) 01/04/17 09:25 Albumin 3.7 gm/dL (4.2-5.5) L 01/04/17 09:25 Globulin 3.3 gm/dL 01/04/17 09:25 Albumin/Globulin Ratio 1.1 (1.0-1.8) 01/04/17 09:25 Triglycerides 61 mg/dL (<150) 12/31/16 00:04 Cholesterol 135 mg/dL (<200) 12/31/16 00:04 LDL Cholesterol Direct 103 mg/dL (75-193) 12/31/16 00:04 HDL Cholesterol 33 mg/dL (23-92) 12/31/16 00:04 Amylase 31 U/L (29-103) 12/31/16 00:04 Urine Opiates Screen POSITIVE (NEGATIVE) H 01/01/17 11:15 Urine Methadone Screen NEGATIVE (NEGATIVE) 01/01/17 11:15 Ur Barbiturates Screen NEGATIVE (NEGATIVE) 01/01/17 11:15 Ur Tricyclics Screen NEGATIVE (NEGATIVE) 01/01/17 11:15 Ur Phencyclidine Scrn NEGATIVE (NEGATIVE) 01/01/17 11:15 Amphetamines Screen POSITIVE (NEGATIVE) H 01/01/17 11:15 U Methamphetamines Scrn POSITIVE (NEGATIVE) H 01/01/17 11:15 U Benzodiazepines Scrn NEGATIVE (NEGATIVE) 01/01/17 11:15 U Cocaine Metab Screen NEGATIVE (NEGATIVE) 01/01/17 11:15 U Cannabinoids Screen NEGATIVE (NEGATIVE) 01/01/17 11:15 - Physical Exam Vitals and I&O: Vital Signs Temp 97.3 F 01/04/17 12:00 Pulse 77 01/04/17 12:00 Resp 20 01/04/17 12:00 BP 163/98 01/04/17 12:00 Pulse Ox 98 01/04/17 12:00 Intake & Output 01/03/17 01/04/17 01/04/17 18:59 06:59 18:59 Intake Total 1200 Output Total 1150 Balance 50 Weight (lbs) 117.934 kg 114.668 kg Intake: Intake, IV Amount 1000 D5-0.9%Ns 1,000 ml @ 80 1000 mls/hr IV .[id number] [facility] Rx #:[id number] Oral 200 Output: Urine 1150 Active Medications: Current Medications Acetaminophen (Tylenol) 650 mg PO Q4H PRN PRN Reason: Pain Or Fever above 101 Stop: 03/01/17 07:57 Acetaminophen/Hydrocodone Bitart ([place] 5mg/325mg) 1 tab PO Q4H PRN PRN Reason: Pain (Severe) Stop: 03/01/17 07:57 Last Admin: 01/04/17 12:21 Dose: 1 tab Albuterol Sulfate (Albuterol 2.5mg/3ml Neb Ud) 2.5 mg HHN Q2HRT PRN PRN Reason: Shortness of Breath or Wheeze Stop: 03/01/17 07:57 Dextrose/Sodium Chloride (D5-0.9%Ns) 1,000 mls @ 80 mls/hr IV .[id number] [facility] Stop: 03/01/17 07:59 Last Admin: 01/03/17 21:37 Dose: 80 mls/hr Ipratropium [place] (Atrovent Neb 0.5mg/2.5ml) 0.5 mg IH Q2HRT PRN PRN Reason: Shortness of Breath or Wheeze Stop: 03/01/17 07:57 Morphine Sulfate (Morphine) 2 mg IVP Q8H PRN PRN Reason: Pain (Moderate) Stop: 03/01/17 03:31 Last Admin: 01/04/17 03:00 Dose: 2 mg Ondansetron HCl (Zofran) 4 mg IV Q8H PRN PRN Reason: Nausea / Vomiting Stop: 03/01/17 07:57 Zolpidem Tartrate (Ambien) 10 mg PO HS PRN PRN Reason: Insomnia Stop: 03/01/17 07:57 Last Admin: 01/04/17 00:52 Dose: 10 mg General: alert HEENT: NC/AT, PERRLA Neck: Supple Lungs: CTAB Cardiovascular: RRR, Normal S1, Normal S2, without murmur Abdomen: soft, non-tender, non-distended, positive bowel sound Extremities: excoriation Neurological: alert - Procedures Procedures: Procedures Procedure Code Date PRP I/CONNIE INIT REDUC >5 YR 64150 12/31/16 REREPAIR ING HERNIA REDUCE 59495 12/31/16 SUPPLEMENT BI INGUINAL REGION WITH SYNTH SUB, OPEN APPROACH [id number] 12/31/16 Internal Medicine Assmt/Plan - Assessment Assessment: Inguinal hernia s/p repair of left/right direct inguinal hernia Right recurrent Groin pain narcotic seeking behavior - Plan Plan: - Plan Plan: pain mgmt ivf for hydration am labs continue current plan of care will refer to psych
[2017-01-04] MEDS: D5-0.9%NS 1,000 ML IV SCH (18:20)
--- NOTE | 2017-01-04 19:45 | Consultation ---
DATE OF CONSULTATION: 01/04/2017 HISTORY OF PRESENT ILLNESS: A 51-year-old male with history of right inguinal pain. The patient is status post surgical intervention due to hernia and [id number], well oriented. 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 He states he has been feeling more sad lately, sleeping more. He states that he is hopeful and motivated that he will get another job. The patient states that he wants to get better. He has been following his treatment plan and is starting to feel better. PAST PSYCHIATRIC HISTORY: Denies. FAMILY HISTORY: He denies. SOCIAL HISTORY: Born in [facility], . He has 2 kids, one of them is age 11, does not live with him. He states he smokes cigarettes once every 2 weeks, methamphetamine. [facility] was contacted by social security assessor. The patient is currently living alone. He wants to find a job. PAST MEDICAL HISTORY: As noted. MEDICATIONS: As noted. MENTAL STATUS EXAMINATION: Stated age, mildly unkempt, fair eye contact. Speech within normal limits. Mood "better." Affect constricted. Thought processes were linear. No SI, no intent, no plan. No evidence of any psychotic symptoms. Insight and judgment fair. PROVISIONAL DIAGNOSIS: Mood, unspecified, rule out major depression; also substance-induced mood disorder; meth use disorder, unspecified. Nicotine use disorder, unspecified. Also, recommend cessation of tobacco as well as methamphetamine. MEDICAL: Please see full H and P. RECOMMENDATIONS AND PLAN: The patient may benefit from antidepressant medications. We will talk to him and discuss risks and benefits. He will also benefit from outpatient followup for chemical dependency, [facility]. JOB# [id number]
[2017-01-05] MEDS: Hydrocodone/APAP 5mg/325mg Tab PO PRN (00:12)
[2017-01-05 06:30] LABS: % BASOPHILS 0.8 % (0.0-2.0); % EOSINOPHILS 6.4 % (0.0-5.0); % LYMPHOCYTES 19.6 % (20.0-50.0); % MONOCYTES 9.9 % (2.0-10.0); % NEUTROPHILS 63.3 % (40.0-80.0); HEMATOCRIT 37.3 % (41.0-60); HEMOGLOBIN 12.4 gm/dL (12-16); MEAN CORPUSCULAR HEMOGLOBIN 28.9 pg (26.0-30.0); MEAN CORPUSCULAR HGB CONC 33.2 pg (28.0-36.0); MEAN PLATELET VOLUME 8.4 fl; NEUTROPHILE ABSOLUTE 5.4 Th/cmm (1.8-8.0); PLATELET COUNT 261 Th/cmm (150-400); RED BLOOD COUNT 4.28 Mil/cmm (4.30-5.70); RED CELL DISTRIBUTION WIDTH 13.1 % (11.5-20.0); WHITE BLOOD COUNT 8.5 Th/cmm (4.8-10.8)
[2017-01-05 06:46] LABS: ANION GAP 8.5 (7.0-16.0); BUN - UREA NITROGEN 14 mg/dL (7-25); CALCIUM SERUM 9.4 mg/dL (8.6-10.3); CARBON DIOXIDE 26.4 mEq/L (21.0-31.0); CHLORIDE 103 mEq/L (98-107); CREATININE - SERUM 0.7 mg/dL (0.7-1.3); GLUCOSE 102 mg/dL (70-105); POTASSIUM SERUM 3.9 mEq/L (3.5-5.1); SODIUM SERUM 134 mEq/L (136-145)
[2017-01-05] MEDS: D5-0.9%NS 1,000 ML IV SCH (07:55)
--- NOTE | 2017-01-05 08:48 | General Progress Note ---
Subjective - Review of Systems Service Date: 01/05/17 Events since last encounter: Psych note read incision clean and healing well labs ok DC per PCP Objective - Results Result Diagrams: 01/05/17 06:06 01/05/17 06:06 Recent Labs: Laboratory Last Values WBC 8.5 Th/cmm (4.8-10.8) 01/05/17 06:06 RBC 4.28 Mil/cmm (4.30-5.70) L 01/05/17 06:06 Hgb 12.4 gm/dL (12-16) 01/05/17 06:06 Hct 37.3 % (41.0-60) L 01/05/17 06:06 MCV 87.0 fl (80-99) 01/05/17 06:06 MCH 28.9 pg (26.0-30.0) 01/05/17 06:06 MCHC Differential 33.2 pg (28.0-36.0) 01/05/17 06:06 RDW 13.1 % (11.5-20.0) 01/05/17 06:06 Plt Count 261 Th/cmm (150-400) 01/05/17 06:06 MPV 8.4 fl 01/05/17 06:06 Neutrophils % 63.3 % (40.0-80.0) 01/05/17 06:06 Lymphocytes % 19.6 % (20.0-50.0) L 01/05/17 06:06 Monocytes % 9.9 % (2.0-10.0) 01/05/17 06:06 Eosinophils % 6.4 % (0.0-5.0) H 01/05/17 06:06 Basophils % 0.8 % (0.0-2.0) 01/05/17 06:06 PT 9.3 SECONDS (9.5-11.5) L 12/31/16 00:04 INR 0.90 (0.5-1.4) 12/31/16 00:04 Sodium 134 mEq/L (136-145) L 01/05/17 06:06 Potassium 3.9 mEq/L (3.5-5.1) 01/05/17 06:06 Chloride 103 mEq/L (98-107) 01/05/17 06:06 Carbon Dioxide 26.4 mEq/L (21.0-31.0) 01/05/17 06:06 Anion Gap 8.5 (7.0-16.0) 01/05/17 06:06 BUN 14 mg/dL (7-25) 01/05/17 06:06 Creatinine 0.7 mg/dL (0.7-1.3) 01/05/17 06:06 Est GFR ( Amer) > 60.0 ml/min (>90) 01/05/17 06:06 Est GFR (Non-Af Amer) > 60.0 ml/min 01/05/17 06:06 BUN/Creatinine Ratio 20.0 01/05/17 06:06 Glucose 102 mg/dL (70-105) 01/05/17 06:06 Calcium 9.4 mg/dL (8.6-10.3) 01/05/17 06:06 Total Bilirubin 0.5 mg/dL (0.3-1.0) 01/04/17 09:25 AST 20 U/L (13-39) 01/04/17 09:25 ALT 25 U/L (7-52) 01/04/17 09:25 Alkaline Phosphatase 69 U/L (34-104) 01/04/17 09:25 Creatine Kinase 255 U/L (30-223) H 12/31/16 00:04 CK-MB (CK-2) 15.5 ng/mL (0.6-6.3) H 12/31/16 00:04 Troponin I < 0.01 ng/mL (0.01-0.05) L 12/31/16 00:04 B-Natriuretic Peptide 27.2 pg/mL (5.0-100.0) 12/31/16 00:04 Total Protein 7.0 gm/dL (6.0-8.3) 01/04/17 09:25 Albumin 3.7 gm/dL (4.2-5.5) L 01/04/17 09:25 Globulin 3.3 gm/dL 01/04/17 09:25 Albumin/Globulin Ratio 1.1 (1.0-1.8) 01/04/17 09:25 Triglycerides 61 mg/dL (<150) 12/31/16 00:04 Cholesterol 135 mg/dL (<200) 12/31/16 00:04 LDL Cholesterol Direct 103 mg/dL (75-193) 12/31/16 00:04 HDL Cholesterol 33 mg/dL (23-92) 12/31/16 00:04 Amylase 31 U/L (29-103) 12/31/16 00:04 Urine Opiates Screen POSITIVE (NEGATIVE) H 01/01/17 11:15 Urine Methadone Screen NEGATIVE (NEGATIVE) 01/01/17 11:15 Ur Barbiturates Screen NEGATIVE (NEGATIVE) 01/01/17 11:15 Ur Tricyclics Screen NEGATIVE (NEGATIVE) 01/01/17 11:15 Ur Phencyclidine Scrn NEGATIVE (NEGATIVE) 01/01/17 11:15 Amphetamines Screen POSITIVE (NEGATIVE) H 01/01/17 11:15 U Methamphetamines Scrn POSITIVE (NEGATIVE) H 01/01/17 11:15 U Benzodiazepines Scrn NEGATIVE (NEGATIVE) 01/01/17 11:15 U Cocaine Metab Screen NEGATIVE (NEGATIVE) 01/01/17 11:15 U Cannabinoids Screen NEGATIVE (NEGATIVE) 01/01/17 11:15 - Physical Exam Vitals and I&O: Vital Signs Temp 97.1 F 01/05/17 03:00 Pulse 72 01/05/17 03:00 Resp 19 01/05/17 03:00 BP 146/80 01/05/17 03:00 Pulse Ox 97 01/05/17 03:00 Intake & Output 01/04/17 01/05/17 01/05/17 18:59 06:59 18:59 Intake Total 1000 1000 Balance 1000 1000 Intake: Intake, IV Amount 1000 1000 D5-0.9%Ns 1,000 ml @ 80 1000 1000 mls/hr IV .[id number] [facility] Rx #:[id number] Active Medications: Current Medications Acetaminophen (Tylenol) 650 mg PO Q4H PRN PRN Reason: Pain Or Fever above 101 Stop: 03/01/17 07:57 Acetaminophen/Hydrocodone Bitart ([place] 5mg/325mg) 1 tab PO Q4H PRN PRN Reason: Pain (Severe) Stop: 03/01/17 07:57 Last Admin: 01/05/17 00:12 Dose: 1 tab Albuterol Sulfate (Albuterol 2.5mg/3ml Neb Ud) 2.5 mg HHN Q2HRT PRN PRN Reason: Shortness of Breath or Wheeze Stop: 03/01/17 07:57 Dextrose/Sodium Chloride (D5-0.9%Ns) 1,000 mls @ 80 mls/hr IV .[id number] ADDISON Stop: 03/01/17 07:59 Last Admin: 01/05/17 07:55 Dose: 80 mls/hr Ipratropium [place] (Atrovent Neb 0.5mg/2.5ml) 0.5 mg IH Q2HRT PRN PRN Reason: Shortness of Breath or Wheeze Stop: 03/01/17 07:57 Morphine Sulfate (Morphine) 2 mg IVP Q8H PRN PRN Reason: Pain (Moderate) Stop: 03/01/17 03:31 Last Admin: 01/04/17 03:00 Dose: 2 mg Ondansetron HCl (Zofran) 4 mg IV Q8H PRN PRN Reason: Nausea / Vomiting Stop: 03/01/17 07:57 Zolpidem Tartrate (Ambien) 10 mg PO HS PRN PRN Reason: Insomnia Stop: 03/01/17 07:57 Last Admin: 01/04/17 00:52 Dose: 10 mg - Procedures Procedures: Procedures Procedure Code Date PRP I/CONNIE INIT REDUC >5 YR 80877 12/31/16 REREPAIR ING HERNIA REDUCE 14024 12/31/16 SUPPLEMENT BI INGUINAL REGION WITH SYNTH SUB, OPEN APPROACH [id number] 12/31/16
--- NOTE | 2017-01-05 11:58 | Progress Notes ---
DATE: 01/05/2017 HISTORY OF PRESENT ILLNESS: The patient is a 51-year-old male, currently well oriented. States he has been down and depressed lately, but did not want to take any antidepressants. Risks and benefits were discussed. He states he is feeling "better" more hopeful and motivated. He states he slept well last night. Hopeful to get a job moving forward. SOCIAL HISTORY: Noted. MENTAL STATUS EXAMINATION: Stated age. Fair eye contact. Mood "better." Affect constricted, linear on exam. No SI, no HI, no intent, no plan. No psychotic symptoms. PROVISIONAL DIAGNOSES: Mood, unspecified, rule out major depression also substance-induced mood disorder. Meth use disorder, unspecified. Nicotine use disorder, unspecified. RECOMMENDATIONS AND PLAN: Recommend a followup with Narcotics Anonymous, offered resources, but the patient declined. Recommend outpatient followup. [facility]# [id number]
--- NOTE | 2017-01-05 13:54 | Internal Medicine Prog Note ---
Internal Medicine Subjective - Subjective Service Date: 01/05/17 (dc summary [id number]) Patient is:: awake, verbal, interactive, agitated Patient Complaints of:: congestion, bloated, unable to sleep Per staff patient has:: no adverse event, poor appetite, tolerating meds Internal Medicine Objective - Results Result Diagrams: 01/05/17 06:06 01/05/17 06:06 Recent Labs: Laboratory Last Values WBC 8.5 Th/cmm (4.8-10.8) 01/05/17 06:06 RBC 4.28 Mil/cmm (4.30-5.70) L 01/05/17 06:06 Hgb 12.4 gm/dL (12-16) 01/05/17 06:06 Hct 37.3 % (41.0-60) L 01/05/17 06:06 MCV 87.0 fl (80-99) 01/05/17 06:06 MCH 28.9 pg (26.0-30.0) 01/05/17 06:06 MCHC Differential 33.2 pg (28.0-36.0) 01/05/17 06:06 RDW 13.1 % (11.5-20.0) 01/05/17 06:06 Plt Count 261 Th/cmm (150-400) 01/05/17 06:06 MPV 8.4 fl 01/05/17 06:06 Neutrophils % 63.3 % (40.0-80.0) 01/05/17 06:06 Lymphocytes % 19.6 % (20.0-50.0) L 01/05/17 06:06 Monocytes % 9.9 % (2.0-10.0) 01/05/17 06:06 Eosinophils % 6.4 % (0.0-5.0) H 01/05/17 06:06 Basophils % 0.8 % (0.0-2.0) 01/05/17 06:06 PT 9.3 SECONDS (9.5-11.5) L 12/31/16 00:04 INR 0.90 (0.5-1.4) 12/31/16 00:04 Sodium 134 mEq/L (136-145) L 01/05/17 06:06 Potassium 3.9 mEq/L (3.5-5.1) 01/05/17 06:06 Chloride 103 mEq/L (98-107) 01/05/17 06:06 Carbon Dioxide 26.4 mEq/L (21.0-31.0) 01/05/17 06:06 Anion Gap 8.5 (7.0-16.0) 01/05/17 06:06 BUN 14 mg/dL (7-25) 01/05/17 06:06 Creatinine 0.7 mg/dL (0.7-1.3) 01/05/17 06:06 Est GFR ( Amer) > 60.0 ml/min (>90) 01/05/17 06:06 Est GFR (Non-Af Amer) > 60.0 ml/min 01/05/17 06:06 BUN/Creatinine Ratio 20.0 01/05/17 06:06 Glucose 102 mg/dL (70-105) 01/05/17 06:06 Calcium 9.4 mg/dL (8.6-10.3) 01/05/17 06:06 Total Bilirubin 0.5 mg/dL (0.3-1.0) 01/04/17 09:25 AST 20 U/L (13-39) 01/04/17 09:25 ALT 25 U/L (7-52) 01/04/17 09:25 Alkaline Phosphatase 69 U/L (34-104) 01/04/17 09:25 Creatine Kinase 255 U/L (30-223) H 12/31/16 00:04 CK-MB (CK-2) 15.5 ng/mL (0.6-6.3) H 12/31/16 00:04 Troponin I < 0.01 ng/mL (0.01-0.05) L 12/31/16 00:04 B-Natriuretic Peptide 27.2 pg/mL (5.0-100.0) 12/31/16 00:04 Total Protein 7.0 gm/dL (6.0-8.3) 01/04/17 09:25 Albumin 3.7 gm/dL (4.2-5.5) L 01/04/17 09:25 Globulin 3.3 gm/dL 01/04/17 09:25 Albumin/Globulin Ratio 1.1 (1.0-1.8) 01/04/17 09:25 Triglycerides 61 mg/dL (<150) 12/31/16 00:04 Cholesterol 135 mg/dL (<200) 12/31/16 00:04 LDL Cholesterol Direct 103 mg/dL (75-193) 12/31/16 00:04 HDL Cholesterol 33 mg/dL (23-92) 12/31/16 00:04 Amylase 31 U/L (29-103) 12/31/16 00:04 Urine Opiates Screen POSITIVE (NEGATIVE) H 01/01/17 11:15 Urine Methadone Screen NEGATIVE (NEGATIVE) 01/01/17 11:15 Ur Barbiturates Screen NEGATIVE (NEGATIVE) 01/01/17 11:15 Ur Tricyclics Screen NEGATIVE (NEGATIVE) 01/01/17 11:15 Ur Phencyclidine Scrn NEGATIVE (NEGATIVE) 01/01/17 11:15 Amphetamines Screen POSITIVE (NEGATIVE) H 01/01/17 11:15 U Methamphetamines Scrn POSITIVE (NEGATIVE) H 01/01/17 11:15 U Benzodiazepines Scrn NEGATIVE (NEGATIVE) 01/01/17 11:15 U Cocaine Metab Screen NEGATIVE (NEGATIVE) 01/01/17 11:15 U Cannabinoids Screen NEGATIVE (NEGATIVE) 01/01/17 11:15 - Physical Exam Vitals and I&O: Vital Signs Temp 98.6 F 01/05/17 13:35 Pulse 94 01/05/17 13:35 Resp 20 01/05/17 13:35 BP 144/99 01/05/17 13:35 Pulse Ox 99 01/05/17 13:35 Intake & Output 01/04/17 01/05/17 01/05/17 18:59 06:59 18:59 Intake Total 1000 1000 Balance 1000 1000 Intake: Intake, IV Amount 1000 1000 D5-0.9%Ns 1,000 ml @ 80 1000 1000 mls/hr IV .[id number] [facility] Rx #:[id number] Active Medications: Current Medications Acetaminophen (Tylenol) 650 mg PO Q4H PRN PRN Reason: Pain Or Fever above 101 Stop: 03/01/17 07:57 Acetaminophen/Hydrocodone Bitart ([place] 5mg/325mg) 1 tab PO Q4H PRN PRN Reason: Pain (Severe) Stop: 03/01/17 07:57 Last Admin: 01/05/17 00:12 Dose: 1 tab Albuterol Sulfate (Albuterol 2.5mg/3ml Neb Ud) 2.5 mg HHN Q2HRT PRN PRN Reason: Shortness of Breath or Wheeze Stop: 03/01/17 07:57 Ipratropium [place] (Atrovent Neb 0.5mg/2.5ml) 0.5 mg IH Q2HRT PRN PRN Reason: Shortness of Breath or Wheeze Stop: 03/01/17 07:57 Morphine Sulfate (Morphine) 2 mg IVP Q8H PRN PRN Reason: Pain (Moderate) Stop: 03/01/17 03:31 Last Admin: 01/04/17 03:00 Dose: 2 mg Ondansetron HCl (Zofran) 4 mg IV Q8H PRN PRN Reason: Nausea / Vomiting Stop: 03/01/17 07:57 Zolpidem Tartrate (Ambien) 10 mg PO HS PRN PRN Reason: Insomnia Stop: 03/01/17 07:57 Last Admin: 01/04/17 00:52 Dose: 10 mg General: alert HEENT: NC/AT, PERRLA Neck: Supple Lungs: CTAB Cardiovascular: RRR, Normal S1, Normal S2, without murmur Abdomen: soft, non-tender, non-distended, positive bowel sound Extremities: excoriation Neurological: alert - Procedures Procedures: Procedures Procedure Code Date PRP I/CONNIE INIT REDUC >5 YR 50723 12/31/16 REREPAIR ING HERNIA REDUCE 05318 12/31/16 SUPPLEMENT BI INGUINAL REGION WITH SYNTH SUB, OPEN APPROACH [id number] 12/31/16 Internal Medicine Assmt/Plan - Assessment Assessment: Inguinal hernia s/p repair of left/right direct inguinal hernia Right recurrent Groin pain - Plan Plan: pain mgmt ivf for hydration am labs continue current plan of care Nutritional Asmnt/Malnutr-PDOC - Dietary Evaluation Malnutrition Findings (Please click <Entered> for more info): Nutritional Asmnt/Malnutrition Start: 01/05/17 11: 20 Text: Status: Active Freq: Document 01/05/17 11:21 [email or web address] (Rec: 01/05/17 11:27 [email or web address] [id number]) Nutritional Asmnt/Malnutrition Patient General Information Nutritional Screening Moderate Risk Screening Diagnosis inguinal hernia, recurrent groin pain Pertinent Medical Hx/Surgical Hx hernia, degenerative joint disease, HTN, methamphetamine use Subjective Information Pt with good PO intake, was lower on CL diet, but has been improving, now on regular diet. S/p hernia repair. Current Diet Order/ Nutrition Support regular Patient / S.O Not Indicated Pertinent Medications D5 @ 80 ml/hr Pertinent Labs 01/05 Na: 134, glucose: 101- 155- on IVF Nutritional Hx/Data Height 6 ft 6 in Height (Calculated Centimeters) 198.1 Current Weight (lbs) 253 lb Weight (Calculated Kilograms) 114.8 Weight (Calculated Grams) 227112.9 [place] Body Weight 214 lbs % [place] Body Weight 118 Recent Weight Change No Weight Status Overweight GI Symptoms GI Symptoms None Food Allergies No Usual diet at home regular Skin Integrity/Comment: surgical incision to abdomen Current %PO Fair (50-74%) Estimated Nutritional Goals BEE in Kcals: Using Current wt Calories/Kcals/Kg 25-30 Kcals Calculated 5789-4934 kcals Protein: Using Current wt Protein g/k g Protein Calculated 115 g Fluid: ml 3450 mL (30 ml/kg) Nutritional Problem 1. Problem Problem altered nutrition related lab values Etiology pt on CL diet for extended time, requiring IVF Signs/Symptoms: Na: 134, glucose: 155 Malnutrition Alert Protein-Calorie Malnutrition N/A Is there a minimum of two criteria No selected? Query Text:Check all the applicable criteria. A minimum of two criteria are recommended for diagnosis of either severe or non-severe malnutrition. Malnutrition Related to Morbid Obesity Malnutrition related to morbid obesity No Intervention/Recommendation Comments 1. Continue regular diet as ordered 2. D/C IVF Expected Outcomes/Goals Expected Outcomes/Goals 1. PO intake >75% 2. wt stability 3. labs approach WNL 4. healthy skin
--- NOTE | 2017-01-05 17:32 | Discharge Summary ---
DATE OF DISCHARGE: 01/05/2017 DISCHARGE DIAGNOSES: Inguinal hernia, status post repair of left and right direct inguinal hernia, right recurrent and groin pain. HISTORY OF PRESENT ILLNESS: This is a 52-year-old male with a 1-day history of right inguinal pain with protrusion. The patient denies any fevers, any chills. The patient was admitted for further management. PHYSICAL EXAMINATION: GENERAL: The patient is awake, alert, in no present distress. VITAL SIGNS: Stable. HEENT: Normocephalic and atraumatic. NECK: Supple. No masses. LUNGS: Clear bilaterally. HEART: Regular rate and rhythm. ABDOMEN: Soft and nontender. HOSPITAL COURSE: During the hospital stay, the patient was admitted to the med/surg unit. The patient had a chest x-ray upon admission and the impression was increased interstitial lung markings, nonspecific, no focal consolidation. The patient was kept n.p.o. upon admission and was kept on IV fluids for hydration. Since the patient's blood pressure is elevated, the patient was added lisinopril and Norvasc to manage the patient's blood pressure. On 01/01/2017, the patient had a repair of his hernia. The patient tolerated the procedure well. The patient was kept on empiric IV antibiotics as well as IV fluids. The patient tolerated p.o. diet. The patient did not have any pain. For this reason, the patient is stable for discharge. CONDITION UPON DISCHARGE: Fair. DISPOSITION: The patient is going home. The patient to follow up with PCP upon discharge. [facility]# [id number]
== END 2017-01-05 14:00 | disposition home or self-care (01) | DRG 351 ==
LOC: ER 22:58 → MSI 12-31 03:25
PROVIDERS: ADMIT Internal Medicine; ATTEND Internal Medicine
PROC: 0YUA0JZ Supplement Bilateral Inguinal Region with Synthetic Substitute, Open Approach (ICD-10-PCS; principal; 2017-01-01)
DX: K40.31 Unilateral inguinal hernia, with obstruction, without gangrene, recurrent (principal); E44.1 Mild protein-calorie malnutrition; I10 Essential (primary) hypertension; Z68.30 Body mass index [BMI] 30.0-30.9, adult; D64.9 Anemia, unspecified; K40.90 Unilateral inguinal hernia, without obstruction or gangrene, not specified as recurrent; M19.90 Unspecified osteoarthritis, unspecified site
CPT/HCPCS: 36415-UA; 71010-TC; 80048-TC; 80053-TC; 80061-TC; 80307; 82150-TC; 82550-TC; 82553; 83880-TC; 84484-TC; 85025-TC; 85610-TC; 90799; 93005; 94760; 96372; 96374; 96375; J0360; J0690; J1644; J2250; J2270; J2405; J2704; J3010; J7030; J7042; Z7610

== ENCOUNTER 2017-09-30 14:22 | Emergency (ER) | payer MEDICAID ==
--- NOTE | 2017-09-30 14:44 | ED Physician Chart ---
ED Chief Complaint/HPI - Patient Information Date Seen:: 09/30/17 Time Seen:: 14:30 Chief Complaint:: right groin pain History of Present Illness:: Patient's had a right inguinal hernia for last 1 year. In the last year he has had 2 unsuccessful surgeries on the right inguinal hernia. Patient vomited once 2 days ago but not since. Patient just ate prior to admission. Patient has also had left inguinal hernia repair. 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 Allergies:: Allergies Allergy/AdvReac Type Severity Reaction Status Date / Time No Known Allergies Allergy Verified 12/30/16 23:41 Historian:: Patient Review:: Nurse's Note Reviewed ED Review of Systems - Review of Systems General/Constitutional: No fever, No chills, No weight loss, No weakness, No diaphoresis, No edema, No loss of appetite Skin: No skin lesions, No rash, No bruising Head: No headache, No light-headedness Eyes: No loss of vision, No pain, No diplopia ENT: No earache, No nasal drainage, No sore throat, No tinnitus Neck: No neck pain, No swelling, No thyromegaly, No stiffness, No mass noted Cardio Vascular: No chest pain, No palpitations, No PND, No orthopnea, No edema Pulmonary: No SOB, No cough, No sputum, No wheezing GI: No nausea, No vomiting, No diarrhea, Pain, No melena, No hematochezia, No constipation, No hematemesis, Other (painful right inguinal hernia) G/U: No dysuria, No frequency, No hematuria Musculoskeletal: No bone or joint pain, No back pain, No muscle pain Endocrine: No polyuria, No polydipsia Psychiatric: No prior psych history, No depression, No anxiety, No suicidal ideation Hematopoietic: No bruising, No lymphadenopathy Allergic/Immuno: No urticaria, No angioedema Neurological: No syncope, No focal symptoms, No weakness, No paresthesia, No headache, No seizure, No dizziness, No confusion, No vertigo ED Past Medical History - Past Medical History Obtainable: Yes Past Medical History: HTN Family History: Diabetes Melitus, HTN Social History: Smoker, No Alcohol, Illicit Drug Use, 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) Surgical History: other (back surgery; 2 right inguinal hernia repairs and one left inguinal hernia repair) Psychiatricy History: None Family Medical History - Family Member Mother History Unknown: Yes Ethnicity: Living Status: Still Living Hx Family Cancer: No Hx Family Coronary Artery Disease: No Hx Family Congestive Heart Failure: Yes Hx Family Hypertension: Yes Hx Family Stroke: No Hx Family Diabetes: Yes Hx Family Seizures: No Hx Family Dementia: No Hx Family AIDS: No Hx Family HIV: No Hx Family COPD: No Hx Family Hepatitis: No Hx Family Psychiatric Problems: No Hx Family Tuberculosis: No ED Physical Exam - Physical Examination General/Constitutional: Awake, Well-developed, well-nourished, Alert, No distress, GCS 15, Non-toxic appearing, Ambulatory Head: Atraumatic Eyes: Lids, conjuctiva normal, PERRL, EOMI Skin: Nl inspection, No rash, No skin lesions, No ecchymosis, Well hydrated, No lymphadenopathy ENMT: External ears, nose nl, Nasal exam nl, Lips, teeth, gums nl Neck: Nontender, Full ROM w/o pain, No JVD, No nuchal rigidity, No bruit, No mass, No stridor Respiratory: Nl effort/Exclusion, Clear to Auscultation, No Wheeze/Rhonchi/Rales Cardio Vascular: RRR, No murmur, gallop, rubs, NL S1 S2 GI: No organomegaly, Normal BS's, Nondistended, No mass/bruits, No McBurney tenderness Other GI comments:: Very large tender non-reducible right inguinal hernia : No CVA tenderness Extremities: No tenderness or effusion, Full ROM, normal strength in all extremities, No edema, Normal digits & nails Neuro/Psych: Alert/oriented, DTR's symmetric, Normal sensory exam, Normal motor strength, Judgement/insight normal, Mood normal, Normal gait, No focal deficits Misc: Normal back, No paraspinal tenderness ED Assessment - Assessment General Assessment: Patient has an incarcarated but not strangulated right inguinal hernia. He is medically stable to go up to the [facility] which is where the police commissioner said he is taking him. ED Septic Shock - . Is Septic Shock (SBP<90, OR Lactate>4 mmol\L) present?: No ED Reassessment (Disposition) - Reassessment Reassessment Condition:: Unchanged - Diagnosis Diagnosis:: Incarcerated right inguinal hernia; medically stable - Aftercare/Follow up Instructions Aftercare/Follow-Up Instructions:: Refer to Discharge Instructions - Patient Disposition Discharge/Transfer:: Care Home/[facility] Condition at Disposition:: Stable, Unchanged
== END 2017-09-30 15:03 | disposition still patient (30) ==
LOC: ER 14:22
DX: K40.90 Unilateral inguinal hernia, without obstruction or gangrene, not specified as recurrent (principal); I10 Essential (primary) hypertension; F17.200 Nicotine dependence, unspecified, uncomplicated; Z98.890 Other specified postprocedural states
CPT/HCPCS: Z7502